=== PATIENT | female | born 1930 | race Caucasian/White ===

== ENCOUNTER → 2017-08-24 | Outpatient (CLI) | payer MEDICARE, OTHER ==
[~2017-08-24] MED LIST: ACETAMINOPHEN325 M1; ACETAMINOPHEN325 M1 PO; ALLOPURINOL 30300 M1 PO; ALLOPURINOL 30300 M3 PO; ALPRAZOLAM 0.0.25 M1 PO; AMOXICILLIN 50500 MG PO; ASPIRIN EC81 M1 PO; BENGAY GREASELE57 GM TOP; BENICAR20 MG; BENICAR20 MG PO; BENTYL; BENTYL 20 MG TA20 M1 PO; BENTYL20 MG; BENTYL20 MG PO; BUPROPION XL300 MG PO; CALCIUM PO; CARDIZEM CD120 MG; CEFUROXIME500 MG PO; CIPROFLOXACIN500 M3 PO; COUMADIN 1MG TAB1 M1 PO; COZAAR 50 MG TA50 M2 PO; DILTIAZEM ER120 M1 PO; FLAGYL500 MG PO; FUROSEMIDE 40 M40 MG PO; HYDROCODONE-AP1 EAC6 PO; IRON; IRON325 PO; JANTOVEN1 MG; KEFLEX500 MG PO; LASIX 40 MG TAB40 M2 PO; LIPITOR 20 MG T20 M1 PO; LIVALO4 MG PO; LOVASTAT40; MACROBID 100 M100 M1 PO; MACROBID 100 M100 M2 PO; MEDROL DOSPAK21 TA1 PO; MIRALAX17 GM PO; MOEXIPRIL-HCTZ1 EAC1; MOEXIPRIL-HCTZ1 EAC1 PO; NORCO 10-325 T1 EACH PO; POTASSIUM20; POTASSIUM20 PO; PREMARIN0.625 MG PO; PROTONIX40 M2 PO; RESTORIL7.5 MG PO; ROBAXIN 750 MG750 M1 PO; TRAMADOL; TRAMADOL 50 MG50 MG PO; ULTRAM 50MG TAB50 MG PO; VITAMINC500; VITAMINC500 PO; VOLTAREN GEL 1100 GM TOP; WELCHOL 625 MG625 MG PO; XANAX 0.25 MG0.25 MG; XANAX 0.25 MG0.25 MG PO
[2017-08-24 16:44] LABS: ABSOLUTE BASOPHILS 0.1 thou/uL (0.0-0.2); ABSOLUTE EOSINOPHILS 0.4 thou/uL (0.0-0.7); ABSOLUTE MONOCYTES 0.6 thou/uL (0.0-1.2); ABSOLUTE NEUTROPHILS 3.7 thou/uL (1.6-8.1); EOSINOPHILS 6.8 %; HEMATOCRIT 29.5 % (37.0-47.0); HEMOGLOBIN 9.8 gm/dL (12.0-15.0); LYMPHOCYTES 16.9 %; MCH 30.7 pg (26.0-34.0); MCHC 33.1 g/dL (28.0-37.0); MCV 92.5 fL (80.0-100.0); MONOCYTES 9.7 %; MPV 8.4 fl. (7.2-11.1); NUCLEATED RBCS 0 /100WBC; PLATELET COUNT* 166 thou/uL (150-400); POLYS 64.6 %; RBC 3.18 mil/uL (4.20-5.00); RDW-CV 15.1 % (10.5-14.5); WBC 5.8 thou/uL (4.0-11.0)
[2017-08-24 16:58] LABS: ALBUMIN 3.5 g/dL (3.4-5.0); CALCIUM 9.6 mg/dL (8.5-10.1); CREATININE 2.3 mg/dL (0.6-1.3); PHOSPHORUS* 3.1 mg/dL (2.5-4.9); POTASSIUM 3.6 mmol/L (3.5-5.1); TOTAL BILIRUBIN 0.4 mg/dL (<0.1-1.0); TOTAL PROTEIN 7.7 g/dL (6.4-8.2)
[2017-08-25 10:10] LABS: eGFR IF AFRICAN AMERICAN 24 (>59)
[2017-08-25 19:11] LABS: PARATHYROID HORMONE 158 pg/mL (15-65)
== END ==
LOC: M.LAB → EDSTATUS 08-06 15:47 → M.LAB 15:49
PROVIDERS: Internal Medicine
DX: I13.0 Hypertensive heart and chronic kidney disease with heart failure and stage 1 through stage 4 chronic kidney disease, or unspecified chronic kidney disease (principal); N18.4 Chronic kidney disease, stage 4 (severe); I50.22 Chronic systolic (congestive) heart failure; I25.10 Atherosclerotic heart disease of native coronary artery without angina pectoris; E78.5 Hyperlipidemia, unspecified; N39.0 Urinary tract infection, site not specified; E87.1 Hypo-osmolality and hyponatremia; Z90.710 Acquired absence of both cervix and uterus

== ENCOUNTER 2017-08-31 09:07 | Emergency (ER) | payer MEDICARE, OTHER ==
[~2017-08-31] VITALS: Ht 149.9 cm; Wt 54.4 kg
[~2017-08-31 09:07] MED LIST changes: -BENGAY GREASELE57 GM TOP; -CEFUROXIME500 MG PO; -FLAGYL500 MG PO; -LIPITOR 20 MG T20 M1 PO; -MEDROL DOSPAK21 TA1 PO; -MIRALAX17 GM PO; -RESTORIL7.5 MG PO; -XANAX 0.25 MG0.25 MG PO
[2017-08-31 09:31] LABS: ABSOLUTE BASOPHILS 0.1 thou/uL (0.0-0.2); ABSOLUTE EOSINOPHILS 0.4 thou/uL (0.0-0.7); ABSOLUTE MONOCYTES 0.5 thou/uL (0.0-1.2); ABSOLUTE NEUTROPHILS 3.7 thou/uL (1.6-8.1); EOSINOPHILS 7.8 %; HEMATOCRIT 26.5 % (37.0-47.0); HEMOGLOBIN 8.8 gm/dL (12.0-15.0); LYMPHOCYTES 17.2 %; MCH 30.7 pg (26.0-34.0); MCHC 33.2 g/dL (28.0-37.0); MCV 92.5 fL (80.0-100.0); MONOCYTES 8.5 %; MPV 7.6 fl. (7.2-11.1); NUCLEATED RBCS 0 /100WBC; PLATELET COUNT* 150 thou/uL (150-400); POLYS 64.5 %; RBC 2.86 mil/uL (4.20-5.00); RDW-CV 15.3 % (10.5-14.5); WBC 5.7 thou/uL (4.0-11.0)
[2017-08-31 09:39] LABS: CALCIUM 9.2 mg/dL (8.5-10.1); POTASSIUM 3.9 mmol/L (3.5-5.1)
[2017-08-31 09:44] LABS: ALBUMIN 3.1 g/dL (3.4-5.0); TOTAL BILIRUBIN 0.5 mg/dL (<0.1-1.0); TOTAL PROTEIN 6.8 g/dL (6.4-8.2)
[2017-08-31 09:45] LABS: PROTIME 25.9 Seconds (9.20-11.50)
[2017-08-31 09:46] LABS: INR 2.7
[2017-08-31 14:09] VITALS: BP 120/76
--- NOTE | 2017-08-31 14:54 | EKG ---
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 : 1930 Requested By: Trevon Davies Order Number: [id number] MD: Carlos Browne Measurements Intervals [place] Rate: 92 P: 50 VT: 171 QRS: -32 QRSD: 108 T: 46 QT: 397 QTc: 492 Interpretive Statements Sinus rhythm Left axis deviation Abnormal R-wave progression, early transition Borderline prolonged QT interval Baseline wander in lead(s) V1 Compared to ECG 01/18/2017 15:12:56 no change Electronically Signed On 08-31-2017 14:53:48 FRUIT DRYER by Carlos Browne [email or web address] <ELECTRONICALLY SIGNED> By: Carlos Browne MD, [facility] 08/31/17 1453 0914 0914 Carlos Browne MD, [facility] /EPI
== END 2017-08-31 14:11 | disposition home or self-care (01) ==
LOC: M.ERS 09:07
PROVIDERS: Emergency Medicine Emergency Medical Services
DX: M25.572 Pain in left ankle and joints of left foot (principal); R51 Headache; Z90.710 Acquired absence of both cervix and uterus; Z96.653 Presence of artificial knee joint, bilateral; Z88.2 Allergy status to sulfonamides; W01.0XXA Fall on same level from slipping, tripping and stumbling without subsequent striking against object, initial encounter; Y93.89 Activity, other specified; Y92.89 Other specified places as the place of occurrence of the external cause; Y99.8 Other external cause status

== ENCOUNTER → 2017-09-18 | Outpatient (CLI) | payer MEDICARE, OTHER ==
[~2017-09-18] MED LIST changes: +BENGAY GREASELE57 GM TOP; +CEFUROXIME500 MG PO; +FLAGYL500 MG PO; +LIPITOR 20 MG T20 M1 PO; +MEDROL DOSPAK21 TA1 PO; +MIRALAX17 GM PO; +RESTORIL7.5 MG PO; +XANAX 0.25 MG0.25 MG PO
[2017-09-18 13:09] LABS: ABSOLUTE BASOPHILS 0.2 thou/uL (0.0-0.2); ABSOLUTE EOSINOPHILS 0.3 thou/uL (0.0-0.7); ABSOLUTE LYMPHOCYTES 1.2 thou/uL (0.8-5.3); ABSOLUTE MONOCYTES 0.7 thou/uL (0.0-1.2); ABSOLUTE NEUTROPHILS 3.6 thou/uL (1.6-8.1); BASOPHILS 2.7 %; EOSINOPHILS 4.7 %; HEMATOCRIT 28.6 % (37.0-47.0); HEMOGLOBIN 9.5 gm/dL (12.0-15.0); MCH 30.5 pg (26.0-34.0); MCHC 33.1 g/dL (28.0-37.0); MCV 92.2 fL (80.0-100.0); MONOCYTES 11.1 %; MPV 7.7 fl. (7.2-11.1); NUCLEATED RBCS 0 /100WBC; PLATELET COUNT* 171 thou/uL (150-400); POLYS 61.5 %; RDW-CV 16.1 % (10.5-14.5); WBC 5.9 thou/uL (4.0-11.0)
[2017-09-18 13:22] LABS: ALBUMIN 3.3 g/dL (3.4-5.0); CALCIUM 8.8 mg/dL (8.5-10.1); CREATININE 1.6 mg/dL (0.6-1.3); PHOSPHORUS* 3.3 mg/dL (2.5-4.9); POTASSIUM 3.7 mmol/L (3.5-5.1); TOTAL BILIRUBIN 0.7 mg/dL (<0.1-1.0); TOTAL PROTEIN 7.2 g/dL (6.4-8.2)
[2017-09-18 17:51] LABS: % SATURATION 26 % (20-39); IRON 59 ug/dL (50-175)
[2017-09-18 19:13] LABS: eGFR IF AFRICAN AMERICAN 37 (>59)
[2017-09-18 21:07] LABS: IgA 302 mg/dL (64-422); IgG 1204 mg/dL (700-1600); IgM 56 mg/dL (26-217); PARATHYROID HORMONE 154 pg/mL (15-65)
[2017-09-19 17:10] LABS: KAPPA FREE LIGHT CHAINS 70.3 mg/L (3.3-19.4); LAMBDA FREE LIGHT CHAINS 39.8 mg/L (5.7-26.3)
== END ==
LOC: M.RAD 11:56
PROVIDERS: Internal Medicine
DX: I13.0 Hypertensive heart and chronic kidney disease with heart failure and stage 1 through stage 4 chronic kidney disease, or unspecified chronic kidney disease (principal); N18.3 Chronic kidney disease, stage 3 (moderate); M19.012 Primary osteoarthritis, left shoulder; M19.011 Primary osteoarthritis, right shoulder; I50.9 Heart failure, unspecified; E78.5 Hyperlipidemia, unspecified; I25.10 Atherosclerotic heart disease of native coronary artery without angina pectoris; Z79.01 Long term (current) use of anticoagulants; Z95.2 Presence of prosthetic heart valve; Z95.1 Presence of aortocoronary bypass graft

== ENCOUNTER → 2017-09-18 | Outpatient (CLI) | payer MEDICARE, OTHER ==
[2017-09-18 13:15] LABS: INR 3.6; PROTIME 34.7 Seconds (9.20-11.50)
== END ==
LOC: M.LAB 12:07 → EDSTATUS 17:34
DX: Z79.01 Long term (current) use of anticoagulants (principal); Z95.2 Presence of prosthetic heart valve; Z95.1 Presence of aortocoronary bypass graft; N18.4 Chronic kidney disease, stage 4 (severe)

== ENCOUNTER 2017-10-17 19:22 | Inpatient (IN) | payer MEDICARE, OTHER ==
[~2017-10-17] VITALS: Ht 152.4 cm; Wt 58.1 kg
[~2017-10-17 19:22] MED LIST changes: -BENGAY GREASELE57 GM TOP; -CEFUROXIME500 MG PO; -FLAGYL500 MG PO; -LIPITOR 20 MG T20 M1 PO; -MEDROL DOSPAK21 TA1 PO; -MIRALAX17 GM PO; -RESTORIL7.5 MG PO; -XANAX 0.25 MG0.25 MG PO
[2017-10-17 19:43] VITALS: BP 120/66
[2017-10-17 20:16] LABS: URINE BILIRUBIN NEGATIVE (Negative); URINE BLOOD NEGATIVE (Negative); URINE CLARITY CLEAR; URINE COLOR YELLOW; URINE GLUCOSE-RANDOM NEGATIVE (Negative); URINE KETONES NEGATIVE (Negative); URINE LEUKOCYTES-REFLEX NEGATIVE (Negative); URINE NITRITE-REFLEX NEGATIVE (Negative); URINE PROTEIN 1+ (Negative); URINE UROBILINOGEN 0.2 E.U./dl (0.2-1.0)
[2017-10-17 20:27] LABS: ABSOLUTE BASOPHILS 0.1 thou/uL (0.0-0.2); ABSOLUTE EOSINOPHILS 0.3 thou/uL (0.0-0.7); ABSOLUTE LYMPHOCYTES 1.5 thou/uL (0.8-5.3); ABSOLUTE NEUTROPHILS 5.3 thou/uL (1.6-8.1); BASOPHILS 1.5 %; EOSINOPHILS 3.8 %; HEMATOCRIT 27.1 % (37.0-47.0); HEMOGLOBIN 9.1 gm/dL (12.0-15.0); MCH 30.9 pg (26.0-34.0); MCHC 33.7 g/dL (28.0-37.0); MCV 91.7 fL (80.0-100.0); MONOCYTES 11.8 %; MPV 9.3 fl. (7.2-11.1); NUCLEATED RBCS 0 /100WBC; PLATELET COUNT* 169 thou/uL (150-400); POLYS 64.9 %; RBC 2.96 mil/uL (4.20-5.00); RDW-CV 15.1 % (10.5-14.5); WBC 8.1 thou/uL (4.0-11.0)
[2017-10-17 20:37] LABS: INR 2.2; PROTIME 21.4 Seconds (9.20-11.50)
[2017-10-17 20:40] LABS: ANION GAP 11 mmol/L (7-16); BUN 33 mg/dL (7-18); CALCIUM 8.9 mg/dL (8.5-10.1); CHLORIDE 106 mmol/L (98-107); CO2 26 mmol/L (21-32); CREATININE 1.8 mg/dL (0.6-1.3); GLUCOSE 106 mg/dL (70-99); POTASSIUM 3.6 mmol/L (3.5-5.1); SODIUM 143 mmol/L (136-145)
[2017-10-17 20:47] LABS: ALBUMIN 3.4 g/dL (3.4-5.0); ALKALINE PHOSPHATASE 154 U/L (46-116); LIPASE 183 U/L (73-393); SGOT 19 U/L (15-37); SGPT 13 U/L (30-65); TOTAL BILIRUBIN 0.5 mg/dL (<0.1-1.0); TOTAL PROTEIN 7.6 g/dL (6.4-8.2); TROPONIN-I LEVEL <0.06 ng/mL (<0.06)
[2017-10-17 22:35] VITALS: BP 110/61
[2017-10-17 23:59] VITALS: BP 151/62
[2017-10-18 05:07] LABS: ABSOLUTE BASOPHILS 0.1 thou/uL (0.0-0.2); ABSOLUTE EOSINOPHILS 0.1 thou/uL (0.0-0.7); ABSOLUTE LYMPHOCYTES 0.9 thou/uL (0.8-5.3); ABSOLUTE MONOCYTES 0.9 thou/uL (0.0-1.2); ABSOLUTE NEUTROPHILS 4.5 thou/uL (1.6-8.1); BASOPHILS 0.8 %; EOSINOPHILS 2.1 %; HEMATOCRIT 23.8 % (37.0-47.0); HEMOGLOBIN 7.9 gm/dL (12.0-15.0); LYMPHOCYTES 13.6 %; MCH 30.2 pg (26.0-34.0); MCV 91.5 fL (80.0-100.0); MONOCYTES 13.3 %; MPV 8.7 fl. (7.2-11.1); NUCLEATED RBCS 0 /100WBC; PLATELET COUNT* 118 thou/uL (150-400); POLYS 70.2 %; RDW-CV 15.1 % (10.5-14.5); WBC 6.4 thou/uL (4.0-11.0)
--- NOTE | 2017-10-18 06:26 | NUR ---
ASSESSMENT COMPLETE. PT ADMITTED WITH ABDOMINAL PAIN. FENTANYL DID NOT HELP, DR CHANGED TO MORPHINE AND PT REPORTED RELIEF. PT REPORTS PAIN IS INTERMITTENT AND SHARP SHOOTING DOWN RIGHT LEG. PT HAS BEEN NPO. IV FLUIDS INFUSING. PT FORGETFUL AND CONFUSED DURING THE NIGHT. PT HAS ROUTINE SURGERY CONSULT. PT IS SLEEPING AT THIS TIME. SEE ASSESSMENT AND VITALS FOR OTHER DETAILS. PT IS FALL RISK, BED ALARM ON. CALL LIGHT WITHIN REACH, WILL CONTINUE PLAN OF CARE
[2017-10-18 07:55] VITALS: BP 112/59
--- NOTE | 2017-10-18 15:17 | EKG ---
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: BD : 1930 Requested By: Preston Coon Order Number: [id number] MD: Jordy Desouza Measurements Intervals [place] Rate: 95 P: 98 [place]: 199 QRS: -24 QRSD: 115 T: 70 QT: 381 QTc: 479 Interpretive Statements Sinus rhythm Incomplete right bundle branch block Baseline wander in lead(s) III,aVL,V2,V3,V5,V6 Compared to ECG 08/31/2017 09:14:29 Incomplete right bundle-branch block now present ST (T wave) deviation now present Left-axis deviation no longer present Electronically Signed On 10-18-2017 15:17:18 CDT by Jordy Desouza [email or web address] <ELECTRONICALLY SIGNED> By: Jordy Desouza MD, FACC 10/18/17 1517 07 07 Jordy Desouza MD, FAC /EPI
--- NOTE | 2017-10-18 18:10 | NUR ---
PATIENT HAS BEEN ALERT AND ORIENTED TODAY, VERY PLEASANT. FAMILY IN ROOM. VITAL SIGNS STABLE ON ROOM AIR, SOME PAIN THAT IS CONTROLLED WITH ORAL PAIN MEDICATIONS. CALL LIGHT IS IN REACH, WILL CONTINUE TO MONITOR.
[2017-10-18 19:31] VITALS: BP 128/53
[2017-10-19 04:39] LABS: HEMATOCRIT 23.8 % (37.0-47.0); HEMOGLOBIN 7.9 gm/dL (12.0-15.0); MCH 30.6 pg (26.0-34.0); MCV 92.8 fL (80.0-100.0); MPV 8.8 fl. (7.2-11.1); RBC 2.57 mil/uL (4.20-5.00); RDW-CV 15.4 % (10.5-14.5); WBC 5.3 thou/uL (4.0-11.0)
[2017-10-19 05:23] LABS: ALBUMIN 2.6 g/dL (3.4-5.0); CALCIUM 8.3 mg/dL (8.5-10.1); CREATININE 1.9 mg/dL (0.6-1.3); MAGNESIUM 1.6 mg/dL (1.8-2.4); POTASSIUM 4.2 mmol/L (3.5-5.1); TOTAL BILIRUBIN 0.4 mg/dL (<0.1-1.0); TOTAL PROTEIN 5.7 g/dL (6.4-8.2)
--- NOTE | 2017-10-19 06:17 | NUR ---
ASSESSMENT COMPLETE. PT SLEPT MOST OF THE NIGHT, DAUGHTER AT BEDSIDE. PT CONFUSED AND FORGETFUL DURING THE NIGHT AND DAUGHTER REPORTS THIS IS NOT BASELINE. PT DENIES NEED FOR PAIN MEDICATION THROUGHOUT THE SHIFT. PT IS ON ROOM AIR WITH [place] SATS. PT HAS IV FLUIDS INFUSING. PT IS FALL RISK, BED ALARM ON. PT IS UP WITH ONE ASSIST TO BSC. PT TURNS SELF IN BED. IV ANTIBIOTICS GIVEN ORDERED. PT HAS NO CONCERNS AT THIS TIME. SEE ASSESSMENT AND VITALS FOR OTHER DETAILS. CALL LIGHT WITHIN REACH, WILL CONTINUE PLAN OF CARE
[2017-10-19 07:50] VITALS: BP 113/75
--- NOTE | 2017-10-19 11:52 | NUR ---
INITIAL ASSESSMENT: Pt evaluated for d/c planning needs. Reviewed chart and spoke with nurse, physician, pt and daughter. Pt is alert and oriented. Pt lives alone in house and was independent with ADL's prior to admission. Daughters are supportive and involved. Pt has walker and cane at home. Pt has had [facility] the past. Pt plans on returning home on d/c from hospital, and wants to use [facility]. Called [facility] and faxed referral. No other needs identified.
[2017-10-19] MEDS ORDERED: MEDROL DOSPAK21 TA1 PO (12:00)
[2017-10-19] MEDS ORDERED: FLAGYL500 MG PO (12:01)
[2017-10-19 12:10] VITALS: BP 128/53
--- NOTE | 2017-10-19 13:55 | NUR ---
PATIENT DISCHARGED TO HOME WITH HOME HEALTH. DISCHARGE PAPERS REVIEWED AND SIGNED. PRESCRIPTIONS AND INFORMATION SHEETS GIVEN. IV REMOVED. PATIENT DENIES ANY FURTHER NEEDS. PATIENT TAKEN BY WHEELCHAIR TO EXIT. LEFT WITH DAUGHTER.
== END 2017-10-19 13:55 | disposition home health service (06) | DRG 391 ==
LOC: M.ERS 19:22 → M.TBA-ER 21:43 → M.3W 21:43
PROVIDERS: Emergency Medicine; Internal Medicine; ADMIT Internal Medicine
DX: K57.32 Diverticulitis of large intestine without perforation or abscess without bleeding (principal); E43 Unspecified severe protein-calorie malnutrition; N20.1 Calculus of ureter; N18.4 Chronic kidney disease, stage 4 (severe); I12.9 Hypertensive chronic kidney disease with stage 1 through stage 4 chronic kidney disease, or unspecified chronic kidney disease; I25.10 Atherosclerotic heart disease of native coronary artery without angina pectoris; E78.5 Hyperlipidemia, unspecified; M19.011 Primary osteoarthritis, right shoulder; D64.9 Anemia, unspecified; Z96.653 Presence of artificial knee joint, bilateral; Z90.49 Acquired absence of other specified parts of digestive tract; Z90.710 Acquired absence of both cervix and uterus; Z95.1 Presence of aortocoronary bypass graft; Z95.2 Presence of prosthetic heart valve; Z90.722 Acquired absence of ovaries, bilateral; Z79.01 Long term (current) use of anticoagulants; Z79.82 Long term (current) use of aspirin; Z79.899 Other long term (current) drug therapy; Z88.2 Allergy status to sulfonamides; Z82.49 Family history of ischemic heart disease and other diseases of the circulatory system

== ENCOUNTER → 2018-01-25 | Outpatient (CLI) | payer MEDICARE, OTHER ==
[~2018-01-25] MED LIST changes: +BENGAY GREASELE57 GM TOP; +CEFUROXIME500 MG PO; +FLAGYL500 MG PO; +LIPITOR 20 MG T20 M1 PO; +MEDROL DOSPAK21 TA1 PO; +MIRALAX17 GM PO; +RESTORIL7.5 MG PO; +XANAX 0.25 MG0.25 MG PO
[2018-01-25 16:24] LABS: ABSOLUTE BASOPHILS 0.1 thou/uL (0.0-0.2); ABSOLUTE EOSINOPHILS 0.4 thou/uL (0.0-0.7); ABSOLUTE LYMPHOCYTES 1.4 thou/uL (0.8-5.3); ABSOLUTE MONOCYTES 0.6 thou/uL (0.0-1.2); ABSOLUTE NEUTROPHILS 3.6 thou/uL (1.6-8.1); BASOPHILS 1.4 %; EOSINOPHILS 6.1 %; HEMATOCRIT 31.6 % (37.0-47.0); HEMOGLOBIN 10.3 gm/dL (12.0-15.0); MCH 29.5 pg (26.0-34.0); MCHC 32.6 g/dL (28.0-37.0); MCV 90.5 fL (80.0-100.0); MONOCYTES 9.6 %; MPV 7.6 fl. (7.2-11.1); NUCLEATED RBCS 0 /100WBC; PLATELET COUNT* 168 thou/uL (150-400); POLYS 59.9 %; RBC 3.49 mil/uL (4.20-5.00); RDW-CV 16.4 % (10.5-14.5)
[2018-01-25 16:40] LABS: CALCIUM 9.9 mg/dL (8.5-10.1); CREATININE 1.8 mg/dL (0.6-1.3); MAGNESIUM 2.4 mg/dL (1.8-2.4); POTASSIUM 4.5 mmol/L (3.5-5.1)
[2018-01-25 16:42] LABS: URINE BILIRUBIN NEGATIVE (Negative); URINE BLOOD NEGATIVE (Negative); URINE CLARITY CLEAR; URINE COLOR YELLOW; URINE GLUCOSE-RANDOM NEGATIVE (Negative); URINE KETONES NEGATIVE (Negative); URINE LEUKOCYTES TRACE (Negative); URINE NITRITE NEGATIVE (Negative); URINE PROTEIN TRACE (Negative); URINE UROBILINOGEN 0.2 E.U./dl (0.2-1.0)
[2018-01-25 16:56] LABS: SQUAMOUS 4-10 Moderate /LPF (0-3)
[2018-01-25 16:58] LABS: BACTERIA None Seen /HPF (None Seen); CASTS None Seen /LPF (None Seen); CRYSTALS None Seen /LPF (None Seen); URINE RBC None Seen /HPF (0-2); URINE WBC 0-5 Rare /HPF (0-5)
[2018-01-26 02:07] LABS: eGFR IF AFRICAN AMERICAN 30 (>59)
== END ==
LOC: M.LAB 15:54
PROVIDERS: Internal Medicine
DX: N18.4 Chronic kidney disease, stage 4 (severe) (principal)

== ENCOUNTER 2018-03-13 06:01 | Inpatient (IN) | payer MEDICARE, OTHER ==
[~2018-03-13] VITALS: Ht 152.4 cm; Wt 54.0 kg
[~2018-03-13 06:01] MED LIST changes: -BENGAY GREASELE57 GM TOP; -CEFUROXIME500 MG PO; -LIPITOR 20 MG T20 M1 PO; -MIRALAX17 GM PO; -RESTORIL7.5 MG PO; -XANAX 0.25 MG0.25 MG PO
[2018-03-13 06:10] VITALS: BP 143/62
[2018-03-13 06:43] LABS: ABSOLUTE BASOPHILS 0.1 thou/uL (0.0-0.2); ABSOLUTE EOSINOPHILS 0.3 thou/uL (0.0-0.7); ABSOLUTE LYMPHOCYTES 1.3 thou/uL (0.8-5.3); ABSOLUTE MONOCYTES 0.5 thou/uL (0.0-1.2); BASOPHILS 1.4 %; EOSINOPHILS 5.9 %; HEMATOCRIT 25.6 % (37.0-47.0); HEMOGLOBIN 8.3 gm/dL (12.0-15.0); LYMPHOCYTES 25.1 %; MCH 30.2 pg (26.0-34.0); MCHC 32.5 g/dL (28.0-37.0); NUCLEATED RBCS 0 /100WBC; PLATELET COUNT* 126 thou/uL (150-400); POLYS 57.6 %; RBC 2.76 mil/uL (4.20-5.00); RDW-CV 16.8 % (10.5-14.5); WBC 5.2 thou/uL (4.0-11.0)
[2018-03-13 06:48] LABS: ANION GAP 7 mmol/L (7-16); BUN 58 mg/dL (7-18); CALCIUM 9.4 mg/dL (8.5-10.1); CHLORIDE 108 mmol/L (98-107); CO2 24 mmol/L (21-32); CREATININE 2.4 mg/dL (0.6-1.3); GLUCOSE 87 mg/dL (70-99); POTASSIUM 4.4 mmol/L (3.5-5.1); SODIUM 139 mmol/L (136-145)
[2018-03-13 06:53] LABS: INR 5.4
[2018-03-13 06:59] LABS: ALBUMIN 3.3 g/dL (3.4-5.0); ALKALINE PHOSPHATASE 113 U/L (46-116); NT-PRO BRAIN NAT PEPTIDE 3151 pg/mL (<300); SGOT 30 U/L (15-37); SGPT 22 U/L (30-65); TOTAL BILIRUBIN 0.5 mg/dL (<0.1-1.0); TOTAL PROTEIN 6.9 g/dL (6.4-8.2); TROPONIN-I LEVEL <0.06 ng/mL (<0.06)
[2018-03-13 07:52] LABS: URINE BILIRUBIN NEGATIVE (Negative); URINE BLOOD 1+ (Negative); URINE CLARITY SL CLOUDY; URINE COLOR YELLOW; URINE GLUCOSE-RANDOM NEGATIVE (Negative); URINE KETONES NEGATIVE (Negative); URINE PROTEIN 1+ (Negative); URINE SPECIFIC GRAVITY 1.015 (1.005-1.030); URINE UROBILINOGEN 0.2 E.U./dl (0.2-1.0)
[2018-03-13 07:54] LABS: URINE LEUKOCYTES-REFLEX 2+ (Negative); URINE NITRITE-REFLEX POSITIVE (Negative)
[2018-03-13 07:59] LABS: BACTERIA-REFLEX 1-9 Few /HPF (None Seen); CASTS None Seen /LPF (None Seen); CRYSTALS None Seen /LPF (None Seen); MUCUS 0-3 Light strn/LPF (None Seen); SQUAMOUS 0-3 Few /LPF (0-3); URINE RBC 3-10 Few /HPF (0-2)
[2018-03-13 12:00] VITALS: BP 147/50
[2018-03-13 16:32] VITALS: BP 120/45
--- NOTE | 2018-03-13 17:36 | EKG ---
[place] [address] ELECTROCARDIOGRAM REPORT Name: EMMA MARTINEZ Room: [place] [address] ADM IN M.R.#: [id number] Admission: 03/13/18 Attend Phys: Milagros Cooney MD Discharge: Date of : [birth year] Report #: [id number] THIS REPORT FOR: //name// [facility] ED Test Date: 2018-03-13 Test Time: 08:24:10 Pat Name: EMMA MARTINEZ Department: Room: [facility] Gender: F Mandarin Tutor: Steven YEH : 1930 Requested By: Demarco Young Order Number: [id number] MD: Jordy Desouza Measurements Intervals [place] Rate: 77 P: 60 [place]: 168 QRS: -35 QRSD: 112 T: 31 QT: 403 QTc: 457 Interpretive Statements Sinus rhythm Borderline IVCD with LAD Abnormal R-wave progression, early transition Compared to ECG 10/17/2017 20:08:53 Incomplete right bundle-branch block no longer present Electronically Signed On 03-13-2018 17:36:03 CDT by Jordy Desouza [email or web address] <ELECTRONICALLY SIGNED> By: Jordy Desouza MD, [facility] 03/13/18 1736 3 3 Jordy Desouza MD, [facility] /EPI
[2018-03-13 18:00] VITALS: BP 114/48
[2018-03-13 18:10] VITALS: BP 150/62
[2018-03-13 23:43] VITALS: BP 169/80
[2018-03-14 04:34] LABS: ABSOLUTE BASOPHILS 0.1 thou/uL (0.0-0.2); ABSOLUTE EOSINOPHILS 0.4 thou/uL (0.0-0.7); ABSOLUTE LYMPHOCYTES 1.7 thou/uL (0.8-5.3); ABSOLUTE MONOCYTES 0.6 thou/uL (0.0-1.2); ABSOLUTE NEUTROPHILS 2.9 thou/uL (1.6-8.1); BASOPHILS 1.2 %; EOSINOPHILS 6.6 %; HEMATOCRIT 26.3 % (37.0-47.0); HEMOGLOBIN 8.5 gm/dL (12.0-15.0); LYMPHOCYTES 29.8 %; MCH 29.9 pg (26.0-34.0); MCHC 32.2 g/dL (28.0-37.0); MCV 92.9 fL (80.0-100.0); MONOCYTES 10.4 %; MPV 8.3 fl. (7.2-11.1); NUCLEATED RBCS 0 /100WBC; PLATELET COUNT* 124 thou/uL (150-400); RBC 2.83 mil/uL (4.20-5.00); RDW-CV 16.6 % (10.5-14.5); WBC 5.6 thou/uL (4.0-11.0)
[2018-03-14 04:36] LABS: PROTIME 46.7 Seconds (9.20-11.50)
[2018-03-14 04:43] LABS: INR 4.9
[2018-03-14 04:44] LABS: CREATININE 2.3 mg/dL (0.6-1.3)
[2018-03-14 08:15] VITALS: BP 128/43
[2018-03-14 16:36] VITALS: BP 127/43
[2018-03-14 19:50] VITALS: BP 136/81
[2018-03-14 23:30] VITALS: BP 130/49
[2018-03-15 04:00] VITALS: BP 94/57
[2018-03-15 04:36] LABS: ABSOLUTE BASOPHILS 0.1 thou/uL (0.0-0.2); ABSOLUTE EOSINOPHILS 0.3 thou/uL (0.0-0.7); ABSOLUTE LYMPHOCYTES 1.5 thou/uL (0.8-5.3); ABSOLUTE MONOCYTES 0.5 thou/uL (0.0-1.2); BASOPHILS 1.1 %; EOSINOPHILS 4.8 %; HEMATOCRIT 28.1 % (37.0-47.0); HEMOGLOBIN 9.2 gm/dL (12.0-15.0); LYMPHOCYTES 23.1 %; MCH 30.4 pg (26.0-34.0); MCHC 32.8 g/dL (28.0-37.0); MCV 92.7 fL (80.0-100.0); MONOCYTES 8.5 %; MPV 8.7 fl. (7.2-11.1); NUCLEATED RBCS 0 /100WBC; PLATELET COUNT* 136 thou/uL (150-400); POLYS 62.5 %; RBC 3.03 mil/uL (4.20-5.00); RDW-CV 16.4 % (10.5-14.5); WBC 6.3 thou/uL (4.0-11.0)
[2018-03-15 04:43] LABS: PROTIME 28.8 Seconds (9.20-11.50)
[2018-03-15 04:57] LABS: ALBUMIN 3.3 g/dL (3.4-5.0); CALCIUM 8.8 mg/dL (8.5-10.1); CREATININE 2.4 mg/dL (0.6-1.3); PHOSPHORUS* 3.9 mg/dL (2.5-4.9); POTASSIUM 4.5 mmol/L (3.5-5.1); TOTAL BILIRUBIN 0.5 mg/dL (<0.1-1.0); TOTAL PROTEIN 6.2 g/dL (6.4-8.2)
[2018-03-15 08:00] VITALS: BP 101/46
[2018-03-15 16:35] VITALS: BP 138/54
[2018-03-16] VITALS: BP 158/95
[2018-03-16 04:00] VITALS: BP 105/42
[2018-03-16 04:49] LABS: INR 2.3; PROTIME 21.8 Seconds (9.20-11.50)
[2018-03-16 07:35] VITALS: BP 105/42
[2018-03-16 07:55] VITALS: BP 145/52
[2018-03-16 12:00] VITALS: BP 117/41
[2018-03-16 16:00] VITALS: BP 102/71
[2018-03-17] VITALS: BP 116/57
[2018-03-17 04:00] VITALS: BP 155/66
[2018-03-17 04:55] LABS: INR 2.2; PROTIME 21.5 Seconds (9.20-11.50)
[2018-03-17 05:10] LABS: ALBUMIN 2.9 g/dL (3.4-5.0); CREATININE 2.2 mg/dL (0.6-1.3); PHOSPHORUS* 4.1 mg/dL (2.5-4.9); POTASSIUM 4.6 mmol/L (3.5-5.1)
[2018-03-17 05:50] LABS: CALCIUM 9.1 mg/dL (8.5-10.1)
[2018-03-17 07:35] VITALS: BP 112/35
--- NOTE | 2018-03-17 11:11 | CON ---
[address] [address] CONSULTATION Name: EMMA MARTINEZ Room: [address] IN M.R.#: [id number] Admission: 03/13/18 Attend Phys: Milagros Cooney MD Discharge: Date of : [birth year] Report #: [id number] THIS REPORT FOR: //name// CC: Milagros Cooley DATE OF SERVICE: 03/14/2018 Nephrology Consultation CONSULTING PHYSICIAN: Dr. Cooney. REASON FOR CONSULTATION: Acute kidney injury. HISTORY OF PRESENT ILLNESS: An 87-year-old female with a history of chronic kidney disease. She was admitted with urinary tract infection and leg pain. She is being followed by vascular and has been started on antibiotics. She follows with Dr. Osorio as an outpatient. She currently has no complaints. REVIEW OF SYSTEMS: Constitutional, psych, heme, eyes, ENT, respiratory, cardiac, GI, , and endocrine, all negative except as documented above. PAST MEDICAL HISTORY: 1. Chronic kidney disease stage 4 secondary to hypertension. 2. Hypertension. 3. Proteinuria. 4. Secondary hyperparathyroidism. 5. History of CHF. 6. Chronically anticoagulated. MEDICATIONS: Reviewed. FAMILY HISTORY: Not pertinent in this 87-year-old female. SOCIAL HISTORY: No current tobacco. PHYSICAL EXAMINATION: VITAL SIGNS: Blood pressure 127/43, pulse 65, respirations 17, and temperature 36.3. GENERAL: No acute distress. EYES: Extraocular movements intact. EARS: Externally normal. CARDIOVASCULAR: Regular rate. LUNGS: No crackles. ABDOMEN: Soft. MUSCULOSKELETAL: [place] [address] CONSULTATION Name: EMMA MARTINEZ Room: [address] IN .R.#: [id number] Admission: 03/13/18 Attend Phys: Milagros Cooney MD Discharge: Date of : [birth year] Report #: [id number] PSYCHIATRIC: Awake, alert. LABORATORY DATA: White cell count 5.6, hemoglobin 8.5, platelets 124. Sodium 140, potassium 5, chloride 109, bicarbonate 27, BUN 50, creatinine 2.3, glucose 87, calcium 9. ASSESSMENT: 1. Acute kidney injury with admission creatinine of 2.3. Outpatient creatinine was 1.8 on 01/25. 2. Chronic kidney disease stage 4 secondary to hypertension, followed by Dr. Osorio as an outpatient. Baseline creatinine appears to be 1.82. 3. Anemia of chronic disease, on Aranesp as an outpatient, also has iron deficiency with iron saturation of 14. 4. Coagulopathy. INR is 4.9. 5. Proteinuria. Urine protein creatinine ratio was 0.43 in August. 6. Hypertension. 7. Secondary Hyperparathyroidism. 8. Urinary tract infection. PLAN: 1. Currently on antibiotics. We will hold losartan and Lasix. 2. She does not have any evidence of significant volume depletion and has not recently had any vomiting or diarrhea. Encouraged her to maintain hydration orally. 3. Check renal ultrasound. 4. We will not give any intravenous iron secondary to infection. We will start iron sulfate 325 mg twice a day. 5. Check bladder scan. 6. Monitor Is and Os. 7. Check labs again in the a.m. 8. We will give a dose of Aranesp and/or Procrit here depending on availability. Thank you for requesting my opinion in the care and management of this patient. <ELECTRONICALLY SIGNED> By: Samia Knott MD 03/17/18 1111 1644 [id number] Knott MD /nt
[2018-03-17 16:50] VITALS: BP 126/42
[2018-03-17 20:05] VITALS: BP 142/61
[2018-03-18 00:28] VITALS: BP 194/82
[2018-03-18 01:11] VITALS: BP 155/78
[2018-03-18 04:00] VITALS: BP 150/62
[2018-03-18 04:45] LABS: INR 3.3; PROTIME 31.3 Seconds (9.20-11.50)
[2018-03-18 07:50] VITALS: BP 158/72
[2018-03-18 16:00] VITALS: BP 150/58
[2018-03-18 20:00] VITALS: BP 129/48
[2018-03-19 04:21] LABS: INR 3.9; PROTIME 37.5 Seconds (9.20-11.50)
[2018-03-19 04:28] VITALS: BP 153/75
[2018-03-19 16:00] VITALS: BP 121/71
[2018-03-19] MEDS ORDERED: RESTORIL7.5 MG PO (19:30)
[2018-03-19] MEDS ORDERED: BENGAY GREASELE57 GM TOP (19:36)
[2018-03-19] MEDS ORDERED: IRON325 PO (19:41)
[2018-03-19] MEDS ORDERED: MIRALAX17 GM PO (19:44)
[2018-03-19] MEDS ORDERED: CEFUROXIME500 MG PO (19:45)
[2018-03-19 19:46] VITALS: BP 105/42
[2018-03-19] MEDS ORDERED: XANAX 0.25 MG0.25 MG PO (20:05)
--- NOTE | 2018-04-12 09:12 | CON ---
[address] [address] CONSULTATION Name: EMMA MARTINEZ Room: [address] IN M.R.#: [id number] Admission: 03/13/18 Attend Phys: Milagros Cooney MD Discharge: 03/19/18 Date of : [birth year] Report #: [id number] THIS REPORT FOR: //name// CC: Zulma Cooley DATE OF SERVICE: 03/19/2018 REQUESTING PHYSICIAN: Bruce Cooley DO. CHIEF COMPLAINT: Preop evaluation. HISTORY OF PRESENT ILLNESS: The patient is an 87-year-old female who has a history of peripheral vascular disease and prior CABG, AVR, was diagnosed in the hospital with a severe carotid stenosis and I am asked to see her in preoperative evaluation. From a cardiovascular standpoint, she has not required any recent revascularization. She has a history of prior 3-vessel CABG and preserved LV function. She denies chest pain or pressure. She is without shortness of breath, congestive heart failure exacerbations. She denies palpitations. She is anticoagulated with warfarin. Currently, she has some confusion, but no focal neurologic symptoms and has not been diagnosed with a stroke this hospitalization to my understanding. PAST MEDICAL HISTORY: Carotid Dopplers this hospitalization showed a 60-70% right-sided carotid stenosis in the internal carotid artery. The left side is more severe with a 70% stenosis in the left internal carotid artery at the bulb with progression from her previous study. She also has lower extremity peripheral vascular disease. She has poor flow in the proximal left posterior tibial and no flow in the distal left posterior tibial. She has a history of 3-vessel CABG in 2010 with a mechanical aortic valve replacement. She is on warfarin anticoagulation. She has mitral valve stenosis in the moderate range. Her last stress test was in 2014 showed negative for ischemia. EF was normal and as above, she has not had any recent cardiovascular revascularizations. HOME MEDICATIONS: Include Tylenol, vitamin C, baby aspirin 81 mg every other day, warfarin as directed by the office, Lasix 40 mg daily, [place] p.r.n., losartan 50 mg daily, Protonix daily, Livalo 4 mg daily and Cardizem 30 mg p.o. b.i.d. SOCIAL HISTORY: She is a nonsmoker, nondrinker. ALLERGIES: [place] [address] CONSULTATION Name: JUANEMMA Elvin Room: [address]#: [id number] Admission: 03/13/18 Attend Phys: Milagros Cooney MD Discharge: 03/19/18 Date of : [birth year] Report #: [id number] REVIEW OF SYSTEMS: GENERAL: No fevers or chills. PULMONARY: No wheezing or cough. CARDIOVASCULAR: No chest pain. No significant shortness of breath. MUSCULOSKELETAL: No edema. HEMATOLOGIC: No anemia or bleeding disorders. RENAL: She does have moderate chronic kidney disease. Her creatinine is 2.2. GENITOURINARY: Positive urinary tract infection this hospitalization. PHYSICAL EXAMINATION: VITAL SIGNS: Blood pressure is 153/75, pulse is 83. GENERAL: This is a pleasant elderly female. 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 HEENT: There is no facial asymmetry. EYES: EOMs intact. No facial asymmetry. NECK: Supple. I cannot hear bruits. CARDIOVASCULAR: Regular with mechanical heart sounds. There is no rub. LUNGS: Clear to auscultation. ABDOMEN: Soft, nontender. EXTREMITIES: There is no focal abnormality. There is no peripheral edema. Radial pulses are intact. Dorsalis pedis pulses are reduced, left worse than right. DIAGNOSTIC: Electrocardiogram shows a sinus rhythm with LVH. LABORATORY DATA: Hemoglobin is 9.2. INR is 3.9. Sodium is 136, potassium 4.6, chloride 103, CO2 is 29, BUN is 51, creatinine is 2.2. IMPRESSION: 1. Preoperative evaluation. From a cardiovascular standpoint, I estimate her cardiovascular risk to be only moderate for myocardial infarction and congestive heart failure. She would need heparin bridging. Given her kidney disease, I would not use Lovenox for bridging. I do not see any contraindication to surgery. Obviously, her risk is predominantly a cerebrovascular at this point for destiny-procedural stroke. 2. Coronary artery disease. I do not see the need for stress testing as it would necessarily alter our predictions and she has been angina free. 3. Status post aortic valve replacement. She has normal mechanical valvular function based on last echo testing, but she has residual mitral valve disease. 4. Hypertension. I would keep her blood pressure higher range of normal in the [address] [address] CONSULTATION Name: EMMA MARTINEZ Room: [address]#: [id number] Admission: 03/13/18 Attend Phys: Milagros Cooney MD Discharge: 03/19/18 Date of : [birth year] Report #: [id number] 140-160 systolic range given her carotid vascular disease. 5. Chronic kidney disease. Her creatinine is likely near her baseline. <ELECTRONICALLY SIGNED> By: Mo Chong MD, FACC 04/12/18 0912 1012 [id number] Chong MD, FACC /nt
== END 2018-03-19 20:24 | DRG 682 ==
LOC: M.ERS 06:01 → M.3W 08:09 → M.TBA-ER 08:09 → M.3W 18:02
PROVIDERS: Emergency Medicine; Internal Medicine; Internal Medicine Nephrology; ADMIT Internal Medicine
DX: N17.9 Acute kidney failure, unspecified (principal); G93.40 Encephalopathy, unspecified; N39.0 Urinary tract infection, site not specified; I50.32 Chronic diastolic (congestive) heart failure; I13.0 Hypertensive heart and chronic kidney disease with heart failure and stage 1 through stage 4 chronic kidney disease, or unspecified chronic kidney disease; D68.9 Coagulation defect, unspecified; D63.8 Anemia in other chronic diseases classified elsewhere; B96.20 Unspecified Escherichia coli [E. coli] as the cause of diseases classified elsewhere; I65.23 Occlusion and stenosis of bilateral carotid arteries; N18.4 Chronic kidney disease, stage 4 (severe); M19.90 Unspecified osteoarthritis, unspecified site; M10.9 Gout, unspecified; I73.9 Peripheral vascular disease, unspecified; N25.81 Secondary hyperparathyroidism of renal origin; Z96.653 Presence of artificial knee joint, bilateral; Z90.49 Acquired absence of other specified parts of digestive tract; Z90.710 Acquired absence of both cervix and uterus; Z95.1 Presence of aortocoronary bypass graft; Z90.722 Acquired absence of ovaries, bilateral; Z79.01 Long term (current) use of anticoagulants; Z79.82 Long term (current) use of aspirin; Z79.899 Other long term (current) drug therapy; Z88.2 Allergy status to sulfonamides; Z82.49 Family history of ischemic heart disease and other diseases of the circulatory system

== ENCOUNTER 2018-03-19 17:07 | Inpatient (IN) | payer MEDICARE, OTHER ==
[~2018-03-19] VITALS: Ht 149.9 cm; Wt 53.5 kg
[2018-03-19] MEDS ORDERED: RESTORIL7.5 MG PO (19:30)
[2018-03-19] MEDS ORDERED: BENGAY GREASELE57 GM TOP (19:36)
[2018-03-19] MEDS ORDERED: IRON325 PO (19:41)
[2018-03-19] MEDS ORDERED: MIRALAX17 GM PO (19:44)
[2018-03-19] MEDS ORDERED: CEFUROXIME500 MG PO (19:45)
[2018-03-19] MEDS ORDERED: XANAX 0.25 MG0.25 MG PO (20:05)
[2018-03-19 20:30] VITALS: BP 102/49
[2018-03-20 04:28] LABS: CREATININE 1.9 mg/dL (0.6-1.3); INR 3.6; POTASSIUM 4.7 mmol/L (3.5-5.1); PROTIME 34.8 Seconds (9.20-11.50)
[2018-03-20 04:29] LABS: HEMATOCRIT 27.6 % (37.0-47.0); MCH 30.5 pg (26.0-34.0); MCHC 32.5 g/dL (28.0-37.0); MCV 93.9 fL (80.0-100.0); MPV 8.1 fl. (7.2-11.1); RBC 2.94 mil/uL (4.20-5.00); RDW-CV 17.3 % (10.5-14.5); WBC 7.6 thou/uL (4.0-11.0)
--- NOTE | 2018-03-20 05:11 | NUR ---
PT ARRIVED ONTO UNIT VIA BED AT 1999 WITH DAUGHTER. ALERT AND ORIENTED X 3. CALM COOPERATIVE BUT FORGETFUL. TAKES PILLS WHOLE WITHOUT ISSUES. C/O RIGHT ARM AND LEG PAIN. PAIN MEDS GIVEN. RESTORIL GIVEN AT HS PER DAUGHTER REQUEST. SHE IS A MIN ASSIST WITH GAIT BELT AND WALKER. UP TO BSC X 1 DURING THE NIGHT. PT DOES OWN CARES. PT SLEPT WELL. NO ATTEMPTS TO GET OUT OF BED. CALL LIGHT IN REACH AND BED ALARM ON.
[2018-03-20 08:30] VITALS: BP 135/78
--- NOTE | 2018-03-20 10:21 | NUR ---
Nutrition: Consult for encephalopathy. Pt admitted to Rehab. Takes warfarin. H/o CABG, PVD. Eating 75% of Heart Healthy diet. Wt stable at 115#. Labs: BUN 49, cr 1.9, BG 80s, albumin 2.9. RX noted. Forgetful. No nutrition concerns at this time. Will follow weekly.
--- NOTE | 2018-03-20 14:01 | NUR ---
SW met with pt to complete initial assessment, introduce self, and SW role on rehab unit. Pt dtr Kassandra and pt son in law in the room visiting. Pt lives at home alone with her two dtrs closeby and they say that the pt family could provide 24/7 care at home if needed. Pt dtr Kassandra numbers: [phone] and [phone]. Pt has a walker and a cane at home; her house is a split level. Pt wonders about getting a sling for her arm and her dtr mentioned compression socks. SW reviewed team conference summary with pt and family and discussed plan for pt to remain on rehab unit at least one more week with team to reassess pt length of stay during team conference on next Sunday. SW to continue to follow to assist with safe dc planning.
--- NOTE | 2018-03-20 18:12 | NUR ---
PT HAS PARTICIPATED WITH THERAPIES AND NAPPED THIS AFTERNOON. PRN FOR RT.SHOULDER PAIN GIVEN WITH TRAMADOL HAVING BETTER EFFECT THIS AFTERNOON. PL. TYLENOL GIVEN THIS AM. PT OCCASIONALLY CONFUSED ADN THINKS SHE IS AT HOME AND IS REDIRECTED.PT CALLS FOR ASSIST TO BATHROOM AND VOIDS WELL AND HAS HAD LARGE BM TODAY. PT TRANSFERRS WITH MIN ASSIST OF 1,GAITBELT AND WALKER. PT PROGRESSES TOWARDS GOALS AND HOURLY ROUNDING CONTINUES.
[2018-03-20 19:30] VITALS: BP 112/62
[2018-03-21 04:26] LABS: INR 3.8; PROTIME 35.9 Seconds (9.20-11.50)
--- NOTE | 2018-03-21 04:37 | NUR ---
ASSUMED CARE OF PT AT 1900 PT ALERT AND ORIENTED BUT CAN BE CONFUSED AT NIGHT. PT AMBULATED FROM CHAIR TO BED WITH WALKER AND GB THEN LATER GOT TO THE BR VIA HER W/C. PT HAD TRAMADOL ONCE FOR PAIN OVERNIGHT HEN SLEPT THROUGH THE NIGHT. WILL CONTINUE PLAN OF CARE.
[2018-03-21 08:00] VITALS: BP 122/53
[2018-03-21 20:00] VITALS: BP 117/50
[2018-03-22 04:53] LABS: INR 3.8; PROTIME 36.1 Seconds (9.20-11.50)
--- NOTE | 2018-03-22 05:03 | NUR ---
ASSUMED PATIENT CARE AT 1900. PATIENT ALERT AND ORIENTED TIMES FOUR. ABLE TO AMBULATE WITH STB TO THE RESTROOM. MANAGES CLOTHING INDEPENDENTLY WITH SOME SET-UP HELP. MANAGES TOILETING INDEPENDENTLY. USES CALL LIGHT APPROPRIATELY. MINOR COMPLAINTS OF PAIN, CONTROLLED WITH ORAL MEDS. [ATIENT RESTING IN BED AT THIS TIME, EYES CLOSED, CALL LIGHT IN REACH. STITCHDOWN THREAD LASTER AND HOURLY ROUNDING COMPLETED DOCUMENTED.
[2018-03-22 07:38] VITALS: BP 108/33
--- NOTE | 2018-03-22 15:23 | NUR ---
ASSESSMENT COMPLETED REFER TO COMPUTER CHARTING. PATIENT RESTING IN BED REPORTING NO PAIN, NUASEA OR SHORTNESS OF BREATH. BED IN LOW AND LOCKED POSITION. CALL LIGHT WITHIN REACH. PATIENT ON ROOM AIR. PATIENT WORKING WITH THEARPY THIS SHIFT. WILL CONTINUE TO MONITOR THIS SHIFT.
[2018-03-22 20:04] VITALS: BP 138/56
[2018-03-23 04:33] LABS: INR 3.4; PROTIME 32.5 Seconds (9.20-11.50)
--- NOTE | 2018-03-23 04:44 | NUR ---
PATIENT SLEPT WELL DURING THIS SHIFT. PT USES CALL LIGHT APPROPRIATELY FOR ASSISTANCE TO BATHROOM. PT UP WITH G.BELT, WALKER AND STANDBY ASSIST. PT VOIDS YELLOW URINE; HAD BOWEL MOVEMENT AT BEGINNING OF SHIFT. PT ABLE TO SWALLOW PILLS WITH NO PROBLEMS. PT C/O ARM PAIN, TYLENOL AND ULTRAM GIVEN. PT DENIES NEEDS AT THIS TIME. FREQUENTLY USED ITEMS AND CALL LIGHT WITHIN REACH. SIDERAILS UPX4 AND BED ALARM ON. WILL CONTINUE TO MONITOR.
[2018-03-23 07:55] VITALS: BP 121/47
[2018-03-23 08:00] VITALS: BP 121/47
--- NOTE | 2018-03-23 17:47 | NUR ---
PATIENT HAS BEEN A/O X 4 THIS SHIFT, CAN BE FORGETFUL AND NEEDING VERBAL CUES FOR TASKS AT TIMES. PATIENT UP TO CHAIR WITH SBA, GB, AND WALKER. PATIENT AMBULATING TO BATHROOM, ABLE TO COMPLETE CHAPARRITA-CARE AND MANAGE CLOTHING ADJUSTMENTS WITH SUPERVISION. PATIENT MEDICATED FOR SHOULDER PAIN X 1 WITH GOOD RELIEF. PARTICIPATED IN ALL THERAPIES THIS SHIFT. TOLERATING DIET AND TAKING ORAL FLUIDS WELL. PATIENT'S FAMILY IN TO VISIT THIS AFTERNOON. BED AND CHAIR ALARMS UTILIZED. HOURLY ROUNDING MAINTAINED. CALL LIGHT WITHIN REACH. WILL CONTINUE WITH PLAN OF CARE.
[2018-03-24 04:05] LABS: INR 2.5; PROTIME 24.3 Seconds (9.20-11.50)
--- NOTE | 2018-03-24 05:02 | NUR ---
ASSUMED CARES AT 1920. ALERT AND ORIENTED BUT FORGETFUL AND CONFUSED AT TIMES. C/O PAIN TO RIGHT SHOULDER/ARM. PAIN MEDS GIVEN. SHE IS A SBA WITH GAIT BELT AND WALKER. UP TO BATHROOM. DOES OWN CARES. TAKES PILLS WHOLE WITHOUT ISSUES. SLEPT OFF AND ON. USED CALL LIGHT APPROPRIATELY. BED ALARM ON.
[2018-03-24 09:21] VITALS: BP 140/52
[2018-03-24 09:30] VITALS: BP 140/52
--- NOTE | 2018-03-24 18:23 | NUR ---
PATIENT HAS BEEN A/O X 4, SLIGHTLY FORGETFUL THIS SHIFT, NO PERIODS OF CONFUSION NOTED THIS SHIFT. PATIENT UP SBA WITH GAITBELT AND WALKER THIS SHIFT. TO DINING ROOM FOR MEALS. PATIENT AMBULATED FROM PATIENT ROOM TO DINING ROOM WITH GAITBELT AND WALKER THIS SHIFT. PATIENT REFUSED BATH, IS SUPERVISION FOR GROOMING. PATIENT IS MINIMAL ASSIST FOR DRESSING. PATIENT MEDICATED FOR SHOULDER PAIN THIS AM WITH RELIEF NOTED. PATIENT ABLE TO HAVE LARGE BM THIS AFTERNOON. HAS FAIR APPETITE AND IS TAKING ORAL FLUIDS WELL. VISITED WITH FAMILY THIS AFTERNOON. HOURLY ROUNDING COMPLETED. CALL LIGHT WITHIN REACH. WILL CONTINUE WITH PLAN OF CARE.
[2018-03-24 20:37] VITALS: BP 105/52
[2018-03-25 04:58] LABS: INR 1.9; PROTIME 18.1 Seconds (9.20-11.50)
[2018-03-25 05:07] LABS: ALBUMIN 2.7 g/dL (3.4-5.0); CALCIUM 8.3 mg/dL (8.5-10.1); HEMATOCRIT 26.9 % (37.0-47.0); HEMOGLOBIN 8.7 gm/dL (12.0-15.0); MAGNESIUM 2.2 mg/dL (1.8-2.4); MCH 30.4 pg (26.0-34.0); MCHC 32.3 g/dL (28.0-37.0); MCV 94.3 fL (80.0-100.0); POTASSIUM 5.1 mmol/L (3.5-5.1); RBC 2.85 mil/uL (4.20-5.00); RDW-CV 17.7 % (10.5-14.5); TOTAL BILIRUBIN 0.3 mg/dL (<0.1-1.0); TOTAL PROTEIN 5.6 g/dL (6.4-8.2); WBC 6.2 thou/uL (4.0-11.0)
--- NOTE | 2018-03-25 05:33 | NUR ---
ASSUMED CARES AT 1920. ALERT AND ORIENTED. NOT FORGETFUL AND CONFUSED TONIGHT. DISCUSSED NEED FOR SLEEP AID. RESTORIL WAS GIVEN PER PT REQUEST. C/O PAIN TO RIGHT ARM AND LEG. PAIN MEDS GIVEN. SBA WITH GAIT BELT AND WALKER. UP TO BATHROOM. DOES OWN CARES. SLEPT VERY WELL AFTER SLEEP AID GIVEN. USING CALL LIGHT APPROPRIATELY. BED ALARM ON.
[2018-03-25 07:30] VITALS: BP 155/43
--- NOTE | 2018-03-25 17:13 | NUR ---
SHIFT NOTE - PT PARTICIPATED IN THERAPY TODAY. PT ABLE TO AMBULATE TO [facility] FOR LUNCH AND DINNER. PT HAD MULTIPLE VISITORS TODAY. PT ABLE TO AMBULATE TO FROM CHAIR WITH WALKER WITHOUT DIFFICULTY.
[2018-03-25 20:09] VITALS: BP 124/41
--- NOTE | 2018-03-26 05:29 | NUR ---
ASSUMED CARES AT 1920. PT ALERT AND ORIENTED X 4. NO CONFUSION NOTED. SOMEWHAT FORGETFUL. HAS BEEN MORE TALKATIVE. IS CONCERNED ABOUT HAVING HER COUMADIN HELD PAST FEW DAYS. PT NEEDS REASSURANCE THAT SHE DID GET COUMADIN LAST NIGHT. PT DENIED NEED FOR PAIN MED OR SLEEP AID. MIN ASSIST WITH GAIT BELT AND WALKER. UP TO BATHROOM. DOES OWN CARES. SLEPT OFF AND ON. CALL LIGHT IN REACH AND BED ALARM ON.
[2018-03-26 05:38] LABS: INR 1.5; PROTIME 14.1 Seconds (9.20-11.50)
[2018-03-26 09:16] VITALS: BP 151/41
[2018-03-26 09:22] LABS: URINE BILIRUBIN NEGATIVE (Negative); URINE BLOOD 1+ (Negative); URINE CLARITY CLEAR; URINE COLOR YELLOW; URINE GLUCOSE-RANDOM NEGATIVE (Negative); URINE KETONES NEGATIVE (Negative); URINE LEUKOCYTES-REFLEX NEGATIVE (Negative); URINE NITRITE-REFLEX NEGATIVE (Negative); URINE PROTEIN TRACE (Negative); URINE UROBILINOGEN 0.2 E.U./dl (0.2-1.0)
[2018-03-26 09:40] LABS: BACTERIA-REFLEX 1-9 Few /HPF (None Seen); CASTS None Seen /LPF (None Seen); MUCUS None Seen strn/LPF (None Seen); SQUAMOUS 0-3 Few /LPF (0-3); URINE RBC 0-2 Rare /HPF (0-2); URINE WBC-REFLEX None Seen /HPF (0-5)
[2018-03-26 09:41] LABS: CRYSTALS None Seen /LPF (None Seen)
--- NOTE | 2018-03-26 11:14 | NUR ---
SW called and spoke with pt dtr Kassandra in preparation for team conference tomorrow. Pt dtr said she noticed pt was not out of bed by herself and SW explained fall risk and reasoning that every pt on rehab unit has to call for assistance/supervision for ambulation (at least until pt is near to dc, then team assesses whether or not pt would be able to be mod I in pt room. Pt dtr concerned pt would be able to dc home alone and said that the pt family is considering SNF or trying to convince pt to move in with one of pt dtrs. Pt dtr said she thought pt confusion was better. Pt dtr expressed that she thinks pt will want to be able to dc home alone soon. Pt dtr said she would count on rehab team to provide recommendations and guidance if pt would need more assistance at dc. SW to continue to follow to assist with safe dc planning.
--- NOTE | 2018-03-26 16:45 | NUR ---
ASSUMMED CARE OF PT AT 0730, PT SLIGHTLY CONFUSED THIS AM, BUT ORIENTED, FORGETFUL AT TIMES, PT TRANSFERS WITH SBA GB AND WALKER, PT COMPLAINS OF PAIN IN RIGHT ARM AND SHOULDER, MEDICATED PER ORDER, VOIDS PER TOILET, BM X 1 THIS SHIFT, UA SENT AND PHYSICIAN AWARE OF RESULTS, TAKING FOOD AND FLUIDS WELL, PARTICIPATED IN ALL THERAPIES, HOURLY ROUNDING COMPLETED, ASSESSMENT COMPLETE, WILL CONTINUE TO MONITOR.
[2018-03-26 20:38] VITALS: BP 133/51
--- NOTE | 2018-03-27 05:02 | NUR ---
ASSUMED PT CARE AT 1930. PT ALERT AND ORIENTED X4, VISITING WITH FAMILY. PT CAN BE FORGETFUL AT TIMES BUT POLITE AND COOPERATIVE WITH CARES. PT TRANSFERS WITH SBA, GAIT BELT AND WALKER. TAKES PILLS WHOLE WITH WATER WITHOUT DIFFICULTY. PT DENIED PAIN. SLEPT WELL OVERNIGHT. CALL LIGHT AND FREQUENTLY USED ITEMS WITHIN REACH. HOURLY ROUNDING IN PROGRESS, WILL CONTINUE TO MONITOR.
[2018-03-27 07:22] LABS: INR 1.3; PROTIME 13.1 Seconds (9.20-11.50)
[2018-03-27 09:00] VITALS: BP 139/56
--- NOTE | 2018-03-27 14:47 | NUR ---
SW met with pt and pt 2 dtrs and one son in law to review team conference summary. Plan for pt to remain on rehab unit to continue therapies for at least one more week with team to reassess pt length of stay next Sunday and for pt to dc next Thursday 04/05 to home alone with services and family and neighbor support to check on pt frequently and assist with meds, cooking, cleaning, and finances. Pt and pt family in agreement with plan. SW to continue to follow to assist with safe dc planning.
--- NOTE | 2018-03-27 16:21 | NUR ---
PT HAS PARTICIPATED WITH THERAPIES AND CALLS FOR ASSIST NEEDS. PT AMBULATES WITH WALKER,GAITBELT AND SBA OF 1 AND HAS AMBULATED TO AND FROM DINNINGROOM TODAY. PT ALERT AND ORIETNATED BUT DOES REPEAT SELF.PT CONTINENT OF B+B AND HAS HAD BM TODAY.PT CONTINUES TO PROGRESS TOWARDS GOALS AND HOURLY ROUNDING CONTINUES.
[2018-03-27 20:10] VITALS: BP 103/58
[2018-03-28 04:08] LABS: INR 1.3; PROTIME 12.9 Seconds (9.20-11.50)
--- NOTE | 2018-03-28 05:42 | NUR ---
ASSUMED PT CARE AT 1930. PT ALERT AND ORIENTED X4, POLITE AND COOPERATIVE WITH CARES. PT SLIGHTLY CONFUSED OVERNIGHT, HAD TROUBLE USING CALL LIGHT AND WOULD VERBALLY CALL OUT INSTEAD. UP WITH SBA, GAIT BELT AND WALKER X3 OVERNIGHT TO VOID. NO STOOL THIS SHIFT. HEATING PAD TO LEFT SHOULDER. PRN PAIN MEDICATION ONCE THIS SHIFT PER MAR FOR LEFT SHOULDER AND ARM PAIN. PT TAKES PILLS WHOLE WITH WATER WITHOUT DIFFICULTY ONCE PILLS ARE PLACED IN HER MOUTH. CALL LIGHT AND FREQUENTLY USED ITEMS WITHIN REACH. HOURLY ROUNDING IN PROGRESS, WILL CONTINUE TO MONITOR.
[2018-03-28 08:02] VITALS: BP 113/82
--- NOTE | 2018-03-28 18:47 | NUR ---
PT HAS PARTICIPATED WITH THERAPIES AND REPORTS LESS PAIN WITH USE OF LIDOCAINE PATCH THIS AFTERNOON. PT CALLS FOR ASSIST TO BATHROOM AND VOIDS WELL. PT EATS MEALS IN DINNINGROOM AND IS ASSISTED WITH OPENING CARTONS AND SMALL PACKAGES. PT REMAINS ALERT AND ORIENTATED AND PROGRESSES TOWARDS GOALS. HOURLY ROUNDING CONTINUES.
[2018-03-28 20:05] VITALS: BP 125/43
--- NOTE | 2018-03-29 05:01 | NUR ---
ASSUMED CARES AT 1920. ALERT AND ORIENTED. PLEASANT. DID WAKE UP DURING THE NIGHT WITH SLIGHT CONFUSION. PT REDIRECTED. SBA WITH GAIT BELT AND WALKER. UP TO BATHROOM. DOES OWN CARES. DID HAVE URINARY ACCIDENT X 1. C/O RIGHT SHOULDER PAIN. SAYS THAT LIDODERM PATCH IS HELPING. VOLTAREN GELL APPLIED TO SHOULDER. DENIED NEED FOR PAIN PILL. SLEPT MOST OF THE NIGHT. USING CALL LIGHT APPROPRIATELY. BED ALARM ON.
[2018-03-29 05:05] LABS: INR 1.4; PROTIME 13.4 Seconds (9.20-11.50)
[2018-03-29 08:35] VITALS: BP 128/49
--- NOTE | 2018-03-29 18:09 | NUR ---
PT CARE ASSUMED AT 0730, AM ASSESSMENT AND VITAL SIGNS COMPLETED DOCUMENTED. PT HAS BEEN PLEASANT AND COOPERATIVE, WELL ORIENTED THIS SHIFT. PT HAS COMPLETED ALL THERAPY SESSIONS SCHEDULED AND IS MAKING GOOD PROGRESS TOWARD GOALS. HOURLY ROUNDING AND FALL PRECAUTIONS IN PLACE.
[2018-03-29 19:55] VITALS: BP 117/32
[2018-03-30 04:55] LABS: INR 1.6; PROTIME 15.4 Seconds (9.20-11.50)
--- NOTE | 2018-03-30 05:45 | NUR ---
PT SLEPT SOUNDLY DURING THE NIGHT, UP WITH GAIT BELT AND WALKER TO THE BATHROOM TO VOID, WORE CHAPARRITA PAD, NEEDED ASSIST PULLING PANTS UP AND DOWN, GOT INTO BED BY SELF BUT NEEDED PULLED UP BY STAFF. NEEDS ASSIST PUTTING PILLS INTO MOUTH. ASSIST TO CHANGE CLOTHES LAST NIGHT. PT PLEASANT, FORGETFUL, PRN PAIN MEDICATIONS FOR RIGHT SHOULDER PAIN. REPOSITIONING DONE WELL A PILLOW FOR SUPPORT. CALL LIGHT IN REACH, BED ALARM ON FOR SAFETY, WILL CONTINUE TO MONITOR
[2018-03-30 07:38] VITALS: BP 106/35
--- NOTE | 2018-03-30 17:46 | NUR ---
ASSUMED CARE AT 0730 PATIENT ALERT/ORIENTED FORGETFUL AT TIMES, UP WITH ASSIST OF ONE AND WALKER AND GAIT BELT, TO DINING ROOM FOR MEALS, PARTICIPATED IN ALL THERAPIES TODAY, BED/CHAIR ALARMS IN PLACE, CALL LIGHT IN REACH, HOURLY ROUNDING COMPLETED. PT HAD A STERIOD INJECTION TO RIGHT SHOULDER THIS AFTERNOON BY DR WARNER. BAINDAID TO SITE, PATIENT RECIEVED XANAX X1 THIS SHIFT FOR ANXIETY AND TRAMADOL X1 THIS SHIFT FOR RIGHT SHOULDER PAIN
[2018-03-30 20:00] VITALS: BP 124/50
--- NOTE | 2018-03-31 05:16 | NUR ---
PT SLEPT SOUNDLY DURING THE NIGHT, PLEASANT, UP SBA AND WALKER TO THE BATHROOM. SUPERVISION WHILE TOILETING. PT PLEASANT, ALERT AND ORIENTED WITH FORGETFULNESS, CALL LIGHT IN REACH, BED ALARM ON FOR SAFETY, WILL CONTINUE TO MONITOR
[2018-03-31 05:28] LABS: PROTIME 25.4 Seconds (9.20-11.50)
[2018-03-31 05:46] LABS: INR 2.6
[2018-03-31 07:49] VITALS: BP 146/62
--- NOTE | 2018-03-31 08:16 | PLAN ---
[address] [address] REHAB UNIT PLAN OF CARE Name: EMMA MARTINEZ Room: [address] IN ..#: [id number] Admission: 03/19/18 Attend Phys: Zulma Paula DO Discharge: Date of : [birth year] Report #: [id number] THIS REPORT FOR: //name// CC: Zulma Paula Bruce Cooley This is an 87-year-old female admitted to inpatient rehabilitation to facilitate safe discharge home, status post fall in the home setting. 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 She is participating in therapies, has needs in physical and occupational therapy as well as speech and language pathology. Previous level of function was independent to modified independent with activities of daily living. Current level of function is eybdohg-gw-jrguphuf assistance of 1-2 depending on therapy, activity and time of day. Estimated length of stay is 12-14 days with discharge disposition to the home setting with supportive family and an accessible house. MEDICAL PROGNOSIS: Good. REHABILITATION PROGNOSIS: Good. Physical therapy will see the patient 60-90 minutes per day, 5 days per week, working on upper and lower body strength, balance, coordination, navigation. Occupational therapy will work with the patient 60-90 minutes per day, 5 days per week, working on upper and lower body strength, balance, coordination, navigation, bathing, dressing, and toileting. Speech and language pathology will work with the patient 30-90 minutes per day, 5 days per week, working on memory, cognition, and expression. This is an overall plan of care, may change from time to time, we will team weekly and make changes to plan of care as needed. <ELECTRONICALLY SIGNED> By: Zulma Paula DO 03/31/18 0816 1049 [id number] Paula DO /nt
--- NOTE | 2018-03-31 18:31 | NUR ---
ASSUMED CARE AT 0730 PATIENT ALERT/ORIENTED WITH PERIODS OF FORGETFUL/CONFUSION. UP WITH STANDBY ASSIST WITH WALKER AND GAIT BELT, PAIN MEDS GIVEN X2 THIS SHIFT WITH FAIR RELIEF. RESTED THROUGHOUT THE DAY, WALKED AROUND UNIT X2 WITH STAFF. TAKES PILL WHOLE WITH WATER. HOURLY ROUNDING COMPLETED, BED/CHAIR ALARMS IN PLACE, CALL LIGHT IN REACH. TO DINING ROOM FOR LUNCH TODAY, FAMILY BROUGHT IN DINNER AND THEY ATE IN HER ROOM
[2018-03-31 20:00] VITALS: BP 132/50
--- NOTE | 2018-04-01 01:10 | NUR ---
ASSUMED PT CARE AT 1930. ASSESSMENT COMPLETED CHARTED. C/O SHOULDER PAIN NOTED AND USED HEATING PAD AND VOLTAREN GEL. PT IS RESTING COMFORTABLY IN BED AT THIS TIME. ABLE TO MAKE SOME NEEDS KNOWN, BED ALARM ON. UP WITH SBA WITH WALKER AND GAIT BELT TO BATHROOM. WILL CONTINUE TO MONITOR.
[2018-04-01 04:24] LABS: PROTIME 40.3 Seconds (9.20-11.50)
[2018-04-01 04:29] LABS: INR 4.2
[2018-04-01 08:00] VITALS: BP 118/50
--- NOTE | 2018-04-01 15:51 | NUR ---
AM ASSESSMENT AND VITAL SIGNS COMPLETED DOCUMENTED. PT HAS BEEN PLEASANT, COOPERATIVE AND WORKS WITH ALL THERAPIES WITHOUT COMPLAINTS. PT HAS NOT COMPLAINED OF RIGHT SHOULDER PAIN THIS SHIFT. FALL PRECAUTIONS AND HOURLY ROUNDING CONTINUE.
[2018-04-01 20:00] VITALS: BP 149/57
[2018-04-02 04:47] LABS: INR 4.1; PROTIME 39.2 Seconds (9.20-11.50)
--- NOTE | 2018-04-02 05:16 | NUR ---
ASSUMED CARES AT 1920. ALERT AND ORIENTED. PT WANTS TO BE ABLE TO GO HOME BUT IS WORRIED ABOUT BEING ABLE TO TRANSFER IN/OUT OF BED. PAIN MEDS GIVEN FOR RIGHT SHOULDER PAIN. MIN ASSIST WITH GAIT BELT AND WALKER. UP TO BATHROOM. DOES OWN CARES. LEGS ELEVATED ONTO PILLOW. SLEPT WELL MOST OF THE NIGHT. USED CALL LIGHT APPROPRIATELY. BED ALARM ON.
[2018-04-02 08:03] VITALS: BP 142/60
--- NOTE | 2018-04-02 10:25 | NUR ---
SW tried to call to follow up with pt dtr Kassandra in preparation for team conference tomorrow. Pt dtr did not answer so SW left detailed message requesting call back with any questions or comments to present to team on pt/family behalf. Plan for reteam with possible dc on Sunday. SW to continue to follow to assist with safe dc planning.
[2018-04-02 20:00] VITALS: BP 130/44
[2018-04-03 04:44] LABS: PROTIME 28.7 Seconds (9.20-11.50)
--- NOTE | 2018-04-03 05:03 | NUR ---
ASSUMED CARES AT 1920. PT ALERT AND ORIENTED BUT MORE ANXIOUS AT BEDTIME TONIGHT. CONTINUES TO WORRY ABOUT BEING ABLE TO GO HOME AND ASKING ABOUT HER COUMADIN. NEEDED MUCH REASSURANCE FROM RN. PT RESTLESS IN RECLINER AND WAS GETTING UP WITHOUT CALLING AND SETTING OFF ALARM. REMINDED PT TO CALL BEFORE GETTING UP. PT AGREEABLE TO TAKING PAIN MEDS FOR RIGHT SHOULDER PAIN. MIN ASSIST WITH GAIT BELT AND WALKER. UP TO BATHROOM. DOES OWN CARES. SLEPT WELL AFTER TAKING PAIN MEDS. CALL LIGHT IN REACH AND BED ALARM ON.
[2018-04-03 08:00] VITALS: BP 129/56
--- NOTE | 2018-04-03 16:28 | NUR ---
PT CARE ASSUMED AT 0730, ASSESSMENT AND VITAL SIGNS COMPLETED DOCUMENTED. PT CONTINUE TO PROGRESS TOWARD DISCHARGE GOALS AND WILL LIKELY GO HOME SUNDAY. FALL PRECAUTIONS AND HOURLY ROUNDING CONTINUE, NO ACUTE DISTRESS.
--- NOTE | 2018-04-03 17:00 | NUR ---
JORGE A and Dr Paula met with pt dtr and pt son in law to review team conference summary, plan for pt to dc home on Sunday with family to stay with pt a few days and HH services to follow. Pt preference for [facility]; SW to arrange. JORGE A discussed recommendation of family training and pt dtr Kassandra willing to participate in therapies. JORGE A met with pt, pt dtr and son in law, pt other dtr, and pt neighbor to review team conference summary in more detail and discuss safe dc planning. SW to continue to follow to assist with dc plans for Sunday.
[2018-04-03 19:40] VITALS: BP 116/41
[2018-04-04 04:38] LABS: INR 2.5; PROTIME 24.4 Seconds (9.20-11.50)
--- NOTE | 2018-04-04 05:22 | NUR ---
PT SLEPT MOST OF SHIFT. ASSESSMENT DOCUMENTED. MEDS GIVEN PER E-MAR. PAIN MEDS GIVEN PER E-MAR FOR RIGHT SHOULDER PAIN. PT UP SBA TO BATHROOM THIS SHIFT. PT HAD BM THIS SHIFT. WILL CONTINUE WITH PLAN OF CARE.
[2018-04-04 05:37] VITALS: BP 129/56
[2018-04-04] MEDS ORDERED: LIPITOR 20 MG T20 M1 PO (05:45)
--- NOTE | 2018-04-04 05:50 | NUR ---
PT WOKE UP CONFUSED THIS MORNING. PT TRIED GETTING OUT OF BED TO "FEED HER BABY NEPHEW" PT HAD TO BE REORIENTED MANY TIMES PT KEPT FORGETTING WHERE SHE WAS AND KEPT TALKING TO "THE BABY BOY" WHO SHE THOUGHT WAS IN THE BED WITH HER.
[2018-04-04 07:30] VITALS: BP 163/62
[2018-04-04 10:36] LABS: URINE BILIRUBIN NEGATIVE (Negative); URINE BLOOD TRACE (Negative); URINE CLARITY CLEAR; URINE COLOR YELLOW; URINE GLUCOSE-RANDOM NEGATIVE (Negative); URINE KETONES NEGATIVE (Negative); URINE LEUKOCYTES-REFLEX 1+ (Negative); URINE NITRITE-REFLEX NEGATIVE (Negative); URINE PROTEIN TRACE (Negative); URINE UROBILINOGEN 0.2 E.U./dl (0.2-1.0)
[2018-04-04 10:56] LABS: BACTERIA-REFLEX 1-9 Few /HPF (None Seen); MUCUS 0-3 Light strn/LPF (None Seen); SQUAMOUS 0-3 Few /LPF (0-3); URINE RBC 0-2 Rare /HPF (0-2); URINE WBC-REFLEX 0-5 Rare /HPF (0-5)
[2018-04-04 10:57] LABS: CRYSTALS None Seen /LPF (None Seen)
[2018-04-04 10:58] LABS: HYALINE CASTS 0-3 Few /LPF (None Seen)
--- NOTE | 2018-04-04 15:46 | NUR ---
ASSUMED CARE AT 0730. ALERT ORIENTED BUT DID EXPERIENCE SOME VISUAL HALLUCINATIONS THIS A.M. REDIRECTED EASILY NO FURTHER HALLUCINATIONS. HX OF ENCEPHALOPATHY. TRANSFERS WITH SBA G BELT WALKER AMBULATES TO BR TO VOID X 2 URINE SPECIMEN SENT ORDERED BY DR. TALLEY. PT. PARTICIPATED IN THERAPIES THROUGHOUT THE DAY. PLEASANT WANTING TO GET STRONGER AND BE DISCHARGED HOME TOMORROW. TAKES MEDS WITH WATER WITHOUT DIFFICULTY FEEDS SELF WITH SET UP. APPETITE GOOD AT BREAKFAST. USES CALL LIGHT APPROPRIATELY FOR ASSISTANCE. TO FOR MEALS.
[2018-04-04 20:10] VITALS: BP 130/70
[2018-04-05 04:59] LABS: INR 2.7; PROTIME 27.7 Seconds (9.20-11.50)
--- NOTE | 2018-04-05 05:16 | NUR ---
PT SLEPT SOUNDLY DURING THE NIGHT, UP SUPERVISION WITH WALKER TO THE BATHROOM, PLEASANT,ALERT AND ORIENTED BY FORGETFUL, CALL LIGHT IN REACH, BED ALARM ON FOR SAFETY, WILL CONTINUE TO MONITOR
[2018-04-05 07:12] VITALS: BP 129/56
[2018-04-05 08:00] VITALS: BP 133/55
[2018-04-05] MEDS ORDERED: TRAMADOL 50 MG50 MG PO (08:59)
[2018-04-05] MEDS ORDERED: XANAX 0.25 MG0.25 MG PO (08:59)
[2018-04-05 09:43] VITALS: BP 129/56
--- NOTE | 2018-04-05 09:44 | NUR ---
Pt to dc home today, Sunday, 04/05 with family support. Family to stay with pt over the weekend at least for supervision and assist if needed. SW arranged and faxed referral and final orders/med list to pt/family preference of [facility]. [phone] fax [phone].
[2018-04-05] MEDS ORDERED: COUMADIN 1MG TAB1 M1 PO (09:47)
[2018-04-05 09:48] VITALS: BP 129/56
[2018-04-05 12:33] VITALS: BP 129/56
--- NOTE | 2018-04-05 15:38 | NUR ---
PATIENT PARTICIPATED IN ALL THERAPIES TODAY NO COMPLAINTS OF PAIN, UP WITH STANDBY ASSIST WITH WALKER/GAIT BELT, HOURLY ROUNDING COMPLETED, CALL LIGHT IN REACH, BED/CHAIR ALARMS IN PLACE. DISCHARGE PAPERS REVIEWED WITH DAUGHTER AND PATIENT, ALL QUESTIONS ANSWERED. DAUGHTER GIVEN PRESCRIPTION FOR TRAMADOL, PATIENT HAS ALL OTHER MEDS AT HOME. PATIENT LEFT FLOOR WITH FAMILY AND STAFF VIA W/C TO CAR. ALL BELONGINGS SENT WITH PATIENT.
[2018-04-05 15:41] VITALS: BP 129/56
--- NOTE | 2018-05-20 10:19 | D ---
[facility] [address] [place] [address] DISCHARGE SUMMARY Name: EMMA MARTINEZ Room: [address] IN M.R.#: [id number] Admission: 03/19/18 Attend Phys: Zulma Paula DO Discharge: 04/05/18 Date of : [birth year] Report #: [id number] THIS REPORT FOR: //name// CC: Zulma Paula Bruce Cooley DATE OF SERVICE: 04/05/2018 DISCHARGE DIAGNOSIS: Debility with recent urinary tract infection, weakness and anemia. DISCHARGE DISPOSITION: To home with home health PT, OT and nursing. She will follow with primary care physician within 1 week. Notifications for physician were given. She will maintain a cardiac diet, fall precautions, safety precautions and monitor weight gain. MEDICATIONS: Reviewed and reconciled by myself and are available in the MAR. DISCHARGE PHYSICAL EXAMINATION: GENERAL: Alert, oriented, in no apparent distress. VITAL SIGNS: Reviewed and are stable. HEENT: Head atraumatic, normocephalic. Pupils equal, round, reactive. ABDOMEN: Soft, nontender, nondistended. NEUROLOGIC: Cranial nerves 2-12 are grossly intact. No focal neuro deficits, 5/5 strength in the bilateral upper and lower extremities. SKIN: Warm and dry. No rashes or lesions noted. <ELECTRONICALLY SIGNED> By: Zulma Paula DO 05/20/18 1019 1618 [id number] bridgette Lizama
== END 2018-04-05 15:42 | disposition home health service (06) | DRG 68 ==
LOC: M.REH 17:07
PROVIDERS: Family Medicine; Internal Medicine; ADMIT Physical Medicine & Rehabilitation
PROC: 3E0U33Z Introduction of Anti-inflammatory into Joints, Percutaneous Approach (ICD-10-PCS; principal; 2018-03-30)
DX: I65.23 Occlusion and stenosis of bilateral carotid arteries (principal); N18.4 Chronic kidney disease, stage 4 (severe); N39.0 Urinary tract infection, site not specified; I38 Endocarditis, valve unspecified; K92.0 Hematemesis; I20.0 Unstable angina; I12.9 Hypertensive chronic kidney disease with stage 1 through stage 4 chronic kidney disease, or unspecified chronic kidney disease; B96.20 Unspecified Escherichia coli [E. coli] as the cause of diseases classified elsewhere; G31.84 Mild cognitive impairment of uncertain or unknown etiology; Z96.653 Presence of artificial knee joint, bilateral; Z16.29 Resistance to other single specified antibiotic; Z16.23 Resistance to quinolones and fluoroquinolones; F41.9 Anxiety disorder, unspecified; D64.9 Anemia, unspecified; S16.1XXA Strain of muscle, fascia and tendon at neck level, initial encounter; W18.39XA Other fall on same level, initial encounter; R58 Hemorrhage, not elsewhere classified; M25.522 Pain in left elbow; I73.9 Peripheral vascular disease, unspecified; R29.6 Repeated falls; M19.012 Primary osteoarthritis, left shoulder; Z88.2 Allergy status to sulfonamides; Z79.899 Other long term (current) drug therapy; Z79.82 Long term (current) use of aspirin; Z90.49 Acquired absence of other specified parts of digestive tract; Z90.722 Acquired absence of ovaries, bilateral; Z82.49 Family history of ischemic heart disease and other diseases of the circulatory system; Z79.01 Long term (current) use of anticoagulants; Z90.710 Acquired absence of both cervix and uterus; Y93.89 Activity, other specified; Y92.89 Other specified places as the place of occurrence of the external cause; Y99.8 Other external cause status; Z95.1 Presence of aortocoronary bypass graft; Z95.2 Presence of prosthetic heart valve

== ENCOUNTER → 2018-05-20 | Outpatient (CLI) | payer MEDICARE, OTHER ==
[~2018-05-20] MED LIST changes: +BENGAY GREASELE57 GM TOP; +CEFUROXIME500 MG PO; +LIPITOR 20 MG T20 M1 PO; +MIRALAX17 GM PO; +RESTORIL7.5 MG PO; +XANAX 0.25 MG0.25 MG PO
[2018-05-20 13:36] LABS: ABSOLUTE BASOPHILS 0.1 thou/uL (0.0-0.2); ABSOLUTE EOSINOPHILS 0.2 thou/uL (0.0-0.7); ABSOLUTE LYMPHOCYTES 1.1 thou/uL (0.8-5.3); ABSOLUTE MONOCYTES 0.6 thou/uL (0.0-1.2); ABSOLUTE NEUTROPHILS 4.1 thou/uL (1.6-8.1); EOSINOPHILS 3.2 %; HEMATOCRIT 33.4 % (37.0-47.0); HEMOGLOBIN 10.9 gm/dL (12.0-15.0); LYMPHOCYTES 18.4 %; MCH 30.4 pg (26.0-34.0); MCHC 32.7 g/dL (28.0-37.0); MONOCYTES 9.7 %; MPV 8.2 fl. (7.2-11.1); NUCLEATED RBCS 0 /100WBC; PLATELET COUNT* 167 thou/uL (150-400); POLYS 67.7 %; RBC 3.59 mil/uL (4.20-5.00); RDW-CV 16.2 % (10.5-14.5); WBC 6.1 thou/uL (4.0-11.0)
[2018-05-20 13:43] LABS: URINE BILIRUBIN NEGATIVE (Negative); URINE BLOOD TRACE (Negative); URINE CLARITY CLEAR; URINE COLOR YELLOW; URINE GLUCOSE-RANDOM NEGATIVE (Negative); URINE KETONES NEGATIVE (Negative); URINE LEUKOCYTES-REFLEX NEGATIVE (Negative); URINE NITRITE-REFLEX NEGATIVE (Negative); URINE PROTEIN NEGATIVE (Negative); URINE UROBILINOGEN 0.2 E.U./dl (0.2-1.0)
[2018-05-20 13:45] LABS: CALCIUM 9.9 mg/dL (8.5-10.1); CREATININE 2.4 mg/dL (0.6-1.3); MAGNESIUM 1.9 mg/dL (1.8-2.4); PHOSPHORUS* 3.3 mg/dL (2.5-4.9); POTASSIUM 3.4 mmol/L (3.5-5.1)
[2018-05-20 23:09] LABS: eGFR IF AFRICAN AMERICAN 24 (>59)
[2018-05-21 10:11] LABS: PARATHYROID HORMONE 57 pg/mL (15-65)
== END ==
LOC: M.LAB 12:55 → EDSTATUS 12:56 → M.LAB 12:56
PROVIDERS: Internal Medicine
DX: N18.4 Chronic kidney disease, stage 4 (severe) (principal)

== ENCOUNTER 2018-07-25 20:02 | Inpatient (IN) | payer MEDICARE, OTHER ==
[~2018-07-25] VITALS: Ht 152.4 cm; Wt 54.4 kg
[2018-07-25 20:08] VITALS: BP 123/99
[2018-07-25 20:45] LABS: HEMATOCRIT 39.2 % (37.0-47.0); HEMOGLOBIN 12.8 gm/dL (12.0-15.0); MCHC 32.5 g/dL (28.0-37.0); MCV 92.2 fL (80.0-100.0); MPV 8.1 fl. (7.2-11.1); NUCLEATED RBCS 0 /100WBC; PLATELET COUNT* 128 thou/uL (150-400); RBC 4.26 mil/uL (4.20-5.00); RDW-CV 16.5 % (10.5-14.5); WBC 9.2 thou/uL (4.0-11.0)
[2018-07-25 20:54] LABS: INR 2.3; PROTIME 23.5 Seconds (9.20-11.50)
[2018-07-25 20:56] LABS: CALCIUM 10.1 mg/dL (8.5-10.1); CREATININE 3.3 mg/dL (0.6-1.3)
[2018-07-25 21:10] LABS: ALBUMIN 3.3 g/dL (3.4-5.0); TOTAL BILIRUBIN 0.8 mg/dL (<0.1-1.0); TOTAL PROTEIN 7.5 g/dL (6.4-8.2); TROPONIN-I LEVEL 0.14 ng/mL (<0.06)
[2018-07-25 21:11] LABS: ABSOLUTE LYMPHOCYTES 0.8 thou/uL (0.8-5.3); ABSOLUTE MONOCYTES 0.4 thou/uL (0.0-1.2); ANISOCYTOSIS 1+; OVALOCYTES 1+; PLATELET ESTIMATE DECREASED
[2018-07-25 22:00] VITALS: BP 114/69
[2018-07-25 22:42] VITALS: BP 140/51
--- NOTE | 2018-07-26 02:16 | NUR ---
RECEIVED REPORT AND ASSUMED CARE OF PATIENT FROM ER AT APPROXIMATELY 2230. DAUGHTER AT BEDSIDE AND ANSWERING MOST OF HISTORY QUESTIONS DUE TO PATIENT'S CONFUSION. DAUGHTER STATES THE PATIENT HAS BEEN GETTING MORE CONFUSED AND WEAK THIS PAST FEW WEEKS AND HAS BEEN FALLING MORE OFTEN. SHE USES A WALKER AT HOME AND USES RAILING THROUGHOUT THE HOUSE TO TRANSFER BUT SHE WAS FOUND ON THE TOILET BY HER DAUGHTER AND IT IS SUSPECTED THAT PATIENT WAS THERE FOR A FEW HOURS. PATIENT HAS TOILET BOWL IMPRINT WITH BLANCHABLE REDNESS, WELL ESCORIATION ON CHAPARRITA AREA. BARRIER CREAM BEING APPLIED WITH POSITIONING AND CHAPARRITA CARE. PATIENT HAS BEEN INCONTINENT OF URINE. NO BM ALTHOUGH DAUGHTER STATES SHE HAS BEEN HAVING DIARRHEA AT HOME. PATIENT C/O PAIN IN RIGHT LEG, ACETAMINOPHEN ADMINISTERED AND PATIENT SLEEPING SHORTLY AFTER. CALL LIGHT WITHIN REACH.
[2018-07-26 04:00] VITALS: BP 95/51
[2018-07-26 04:51] LABS: ABSOLUTE BASOPHILS 0.1 thou/uL (0.0-0.2); ABSOLUTE EOSINOPHILS 0.1 thou/uL (0.0-0.7); ABSOLUTE LYMPHOCYTES 0.5 thou/uL (0.8-5.3); ABSOLUTE MONOCYTES 0.6 thou/uL (0.0-1.2); ABSOLUTE NEUTROPHILS 5.8 thou/uL (1.6-8.1); BASOPHILS 0.8 %; EOSINOPHILS 1.2 %; HEMATOCRIT 33.1 % (37.0-47.0); LYMPHOCYTES 6.5 %; MCH 30.4 pg (26.0-34.0); MCHC 33.2 g/dL (28.0-37.0); MCV 91.7 fL (80.0-100.0); MONOCYTES 9.1 %; MPV 8.4 fl. (7.2-11.1); NUCLEATED RBCS 0 /100WBC; PLATELET COUNT* 101 thou/uL (150-400); POLYS 82.4 %; RDW-CV 15.8 % (10.5-14.5); WBC 7.1 thou/uL (4.0-11.0)
[2018-07-26 05:28] LABS: CALCIUM 8.8 mg/dL (8.5-10.1); CREATININE 3.3 mg/dL (0.6-1.3); POTASSIUM 3.5 mmol/L (3.5-5.1)
[2018-07-26 06:00] VITALS: BP 116/56
[2018-07-26 08:02] VITALS: BP 117/44
[2018-07-26 12:00] VITALS: BP 106/48
--- NOTE | 2018-07-26 14:58 | EKG ---
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: Carmen CAMARA : 1930 Requested By: Preston Coon Order Number: [id number] MD: Jordy Desouza Measurements Intervals [place] Rate: 92 P: 54 ND: 164 QRS: -31 QRSD: 107 T: 52 QT: 382 QTc: 473 Interpretive Statements Sinus rhythm Left axis deviation Abnormal R-wave progression, early transition Possible anteroseptal infarct, old inferior scar Minimal ST elevation, lateral leads Compared to ECG 03/13/2018 08:24:10 Left-axis deviation now present Myocardial infarct finding now present ST (T wave) deviation now present Electronically Signed On 07-26-2018 14:57:57 WAITER/WAITRESS TAKE OUT by Jordy Desouza [email or web address] <ELECTRONICALLY SIGNED> By: Jordy Desouza MD, FACC 07/26/18 1457 23 23 Jordy Desouza MD, FAC /EPI
[2018-07-26 15:48] VITALS: BP 124/62
--- NOTE | 2018-07-26 16:39 | NUR ---
SPOKE TO THE PATIENT AND HER DTR'S TO DISUCSS HOME SITUATION, DISCHARGE PLANNING, AND TO INFORM OF THE ROLE OF CM. PATIENT RESTING WITH EYES CLOSED DURRING ASSESSMENT. PATIENT'S DTR'S ANSWERING ALL QUESTIONS. PATIENT'S DTR'S INFORM THAT THE PATIENT IS ALERT AND ORIENTED AND IS ABLE TO CARE FOR HERSELF AT HOME. PATIENT ABLE TO PREPARE OWN MEALS AND DO ADL'S INDEPENDENTLY. PATIENT RESIDES AT HOME ALONE. PATIENT HAS HX OF HH WITH [facility], AND DTR'S INFORM THAT THE PATIENT HOPES TO BE ABLE TO RETURN HOME AT D/C. CM WILL REMAIN AVIALABLE TO ASSIST AND FOLLOW NEEDED.
--- NOTE | 2018-07-26 18:33 | NUR ---
PT UP TO BATHROOM WITH WALKER, MIN ASSIST X1. PT C/O PAIN IN LEGS AND ARMS, RELIEVED WITH TYLENOL. PT ALERT AND ORIENTED X4, PLEASANT. PT STATES SHE LIVES AT HOME ALONE BUT HAS FAMILY COME TO DO RELATIONS COORDINATOR AND FIX MEALS. DAUGHTERS COME DAILY TO PT HOUSE. PT HAD ONE LOOSE BM. NO OTHER C/O TODAY. PT ABLE TO MAKE NEEDS KNOWN, CALL LIGHT IN REACH
[2018-07-26 20:12] VITALS: BP 107/53
[2018-07-27] VITALS: BP 159/63
[2018-07-27 01:44] LABS: URINE BILIRUBIN NEGATIVE (Negative); URINE BLOOD 3+ (Negative); URINE CLARITY TURBID; URINE COLOR YELLOW; URINE GLUCOSE-RANDOM NEGATIVE (Negative); URINE KETONES NEGATIVE (Negative); URINE NITRITE-REFLEX NEGATIVE (Negative); URINE PROTEIN 1+ (Negative); URINE SPECIFIC GRAVITY 1.015 (1.005-1.030); URINE UROBILINOGEN 0.2 E.U./dl (0.2-1.0)
[2018-07-27 01:45] LABS: URINE LEUKOCYTES-REFLEX 3+ (Negative)
[2018-07-27 02:04] LABS: CASTS None Seen /LPF (None Seen); SQUAMOUS 0-3 Few /LPF (0-3); URINE WBC-REFLEX >25 Many /HPF (0-5)
[2018-07-27 02:05] LABS: BACTERIA-REFLEX >30 Many /HPF (None Seen); CRYSTALS None Seen /LPF (None Seen); URINE RBC 3-10 Few /HPF (0-2)
[2018-07-27 04:00] VITALS: BP 103/44
[2018-07-27 05:22] LABS: HEMATOCRIT 32.8 % (37.0-47.0); HEMOGLOBIN 10.7 gm/dL (12.0-15.0); MCH 30.4 pg (26.0-34.0); MCHC 32.7 g/dL (28.0-37.0); MCV 92.8 fL (80.0-100.0); MPV 8.4 fl. (7.2-11.1); RBC 3.54 mil/uL (4.20-5.00); RDW-CV 16.1 % (10.5-14.5); WBC 4.7 thou/uL (4.0-11.0)
[2018-07-27 05:29] LABS: PROTIME 20.7 Seconds (9.20-11.50)
[2018-07-27 05:43] LABS: CALCIUM 8.2 mg/dL (8.5-10.1); CREATININE 3.1 mg/dL (0.6-1.3); POTASSIUM 3.4 mmol/L (3.5-5.1)
--- NOTE | 2018-07-27 07:48 | NUR ---
PATIENT HAD ONE EPISODE OF DIARRHEA, WHICH SHE WAS INCONTINENT OF. PATIENT DENIES NAUSEA. PATIENT GIVEN BED BATH AFTER INCONTINENT STOOL. PATIENT HAS BEEN VOIDING IN BEDSIDE COMMODE, URINE COLLECTED. REFER TO RESULTS OF U/A. PAIN RELIEVED WITH PRN ACETAMINOPHEN. PATIENT RESTED WELL THROUGHOUT NIGHT. REPOSITIONING COMPLETED Q2H. RING ON BOTTOM WHICH WAS BLANCHABLE REDNESS THE DAY PRIOR IS NOW BLISTERING. THIS IS FROM PATIENT SITTING ON HER BEDSIDE COMMODE AT HOME FOR HOURS. PICTURES TAKEN AND PLACED IN CHART. WOUND CONSULT ENTERED. SKIN TEARS DRESSED WITH VASOLINE GAUZE AND ROLLED GAUZE. CALL LIGHT WITHIN REACH
[2018-07-27 08:00] VITALS: BP 121/53
[2018-07-27 12:00] VITALS: BP 98/46
--- NOTE | 2018-07-27 12:45 | CON ---
[address] [address] CONSULTATION Name: EMMA MARTINEZ Room: [address] IN M.R.#: [id number] Admission: 07/25/18 Attend Phys: Lisa Camarillo MD Discharge: Date of : [birth year] Report #: [id number] THIS REPORT FOR: //name// CC: Bruce Araizasawyer Lisa Camarillo DATE OF SERVICE: 07/26/2018 CARDIOLOGY CONSULTATION PATIENT LOCATION: The patient in [facility]. HISTORY OF PRESENT ILLNESS: The patient is a very pleasant 87-year-old female with a history of coronary artery disease and aortic valve disease, status post remote coronary artery bypass grafting and aortic valve replacement with a metallic prosthesis. She has been chronically anticoagulated with Coumadin. She presented after a prolonged period of unresponsiveness at home when she was sitting on the commode for several hours. She was found at home and transferred to the [facility]. She was confused initially, but after rehydration, her state of consciousness has returned to normal and she is feeling more like herself. Mild apraxia was noted, but no additional neurologic abnormalities. She denies chest, neck, jaw or arm discomfort or undue dyspnea. She denies palpitations, dizziness or syncope. Chronic cardiac therapy includes furosemide 40 mg daily, losartan 50 mg daily, Livalo 4 mg daily, warfarin in varying dose schedule and diltiazem 30 mg twice a day. PAST MEDICAL HISTORY: Remarkable for the aforementioned coronary artery disease, aortic valve disease, congestive heart failure, hypertension and some weakness. FAMILY HISTORY: Negative for premature coronary artery disease. SOCIAL HISTORY: She lives independently and does not smoke. REVIEW OF SYSTEMS: Remarkable for the following: Generalized weakness and frailty has been present. She denies recent cardiovascular or pulmonary symptoms. She does note mild muscle weakness, which is diffuse. Remainder is unremarkable. PHYSICAL EXAMINATION: [place] [address] CONSULTATION Name: EMMA MARTINEZ Room: [address] IN [facility]#: [id number] Admission: 07/25/18 Attend Phys: Lisa Camarillo MD Discharge: Date of : [birth year] Report #: [id number] GENERAL: Demonstrates an elderly female, who is alert and appropriate. VITAL SIGNS: Blood pressure is 115/70, pulse rate is 75 and respirations are 18 per minute. NECK: Jugular venous pressure is normal. CHEST EXAMINATION: Clear. CARDIOVASCULAR EXAMINATION: Reveals a normal first heart sound with a prosthetic second heart sound and a grade 2/6 systolic ejection type murmur, without rubs or gallops. ABDOMEN: Mildly obese. EXTREMITIES: Satisfactorily perfused, with modest ecchymotic areas on the extremities, upper and lower. LABORATORY DATA: On admission revealed a hemoglobin of 11.0, white blood cell count of 7000 with a BUN of 64, creatinine 3.3 and potassium 3.5. Total CK 5094. Troponin I maximally 0.21. Electrocardiogram revealed sinus rhythm with significant baseline artifact, possibly inferior wall scar and nonspecific ST-T alterations are noted. IMPRESSION: 1. Episode of alteration of consciousness with prolonged episode of inanition at home and associated rhabdomyolysis. 2. Renal insufficiency with exacerbation by dehydration prior to admission. 3. Coronary artery disease, status post coronary artery bypass grafting. 4. Aortic valve disease, status post aortic valve replacement with a metallic prosthesis. 5. Hypercholesterolemia. 6. History of hypertension. 7. Mild apraxia. RECOMMENDATIONS: 1. Rehydration is currently underway. 2. Would resume oral anticoagulation probably tomorrow, given the construct which is that of a metallic aortic valve placed multiple years ago. 3. Minimal increase in troponin does not suggest significant injury. 4. Would suggest an echocardiogram to evaluate left ventricular size and function as well as the function of the aortic prosthesis. We will follow with you and thank you for allowing us to see the patient back in cardiovascular assessment. <ELECTRONICALLY SIGNED> By: Jordy Desouza MD, FACC 07/27/18 1245 1538 [id number] Desouza MD, FACC /nt
--- NOTE | 2018-07-27 14:25 | CON ---
[address] [address] CONSULTATION Name: EMMA MARTINEZ Room: [address] IN M.R.#: [id number] Admission: 07/25/18 Attend Phys: Lisa Camarillo MD Discharge: Date of : [birth year] Report #: [id number] THIS REPORT FOR: //name// CC: Bruce Araizasawyer Lisa Camarillo DATE OF SERVICE: 07/26/2018 HISTORY OF PRESENT ILLNESS: The patient is an 87-year-old woman who was admitted from the Emergency Room on 07/25/2018. History from the daughters indicate that she had difficulty walking over several days. On last Sunday, she could not go to a because she had difficulty in getting up. She was complaining of pain in the medial thighs. She could not stand up without help. Yesterday, her daughter called her and she did not answer. The patient does live alone, but she has 2 daughters who live close by. When she continued to not supervisor picking crew the phone, one daughter went to the house and found her in the bathroom sitting on the stool. She could not get up from the stool. With help, they got her back in bed and she slept. About 6:00 p.m., she indicated that she needed to go to the bathroom again, but she could not walk and the family then brought her to the Emergency Department where she was admitted. The patient is on Coumadin for a mechanical aortic valve. She has bilateral knee replacements of many years' duration and has been having chronic problems with bending her knees. She uses a walker at home. She can walk okay, but just cannot bend her knees. She has been having a lot of easy bruising as well. The Emergency Room found that she did have mental status change. She was noted to have hallucinations, and she did appear to be confused. She was found to have markedly elevated CK with findings of rhabdomyolysis. A CT scan showed no acute cerebral process. Her creatinine was 3.3 with an estimated GFR of 13. The AST was 203, which could go along with her elevated CPK, which was 5094. The INR was 2.3. Her platelet count was 101,000. She takes pitavastatin or Livalo, losartan, ferrous sulfate, tramadol, Coumadin, aspirin 81 mg and allopurinol for gout. PAST MEDICAL AND SURGICAL HISTORY: Positive for hysterectomy, gallbladder surgery, knee replacements, ovaries removed and aortic valve replacement in 2010. SOCIAL HISTORY: She is a never smoker, never alcohol drinker. ALLERGIES: SHE IS ALLERGIC TO SULFA. REVIEW OF SYSTEMS: Positive for frequent urinary tract infections and frequent bruising. She has had falls. She denies neurological symptoms of headache, visual disturbance, hearing loss or difficulty swallowing[place] [id number] CONSULTATION Name: JUANEMMA Elvin Room: [address] IN [facility]#: [id number] Admission: 07/25/18 Attend Phys: Lisa Camarillo MD Discharge: Date of : [birth year] Report #: [id number] complaints of pain in her medial thigh area bilaterally. PHYSICAL EXAMINATION: VITAL SIGNS: Blood pressure 106/48, pulse 97, temperature 37.0. GENERAL: The patient is a very frail elderly woman who appears her stated age of 87 who was cooperative and pleasant. NECK: Supple. NEUROLOGIC: She is alert and oriented. She could give a relatively good medical narrative. She was forgetful about details, but there was no evidence of hallucinations or delusions. Cranial nerve testing, the pupils were small, but equally round and reactive. Extraocular movements were full. There was no superficial temporal artery tenderness. Facial sensation and mobility were normal. She is edentulous. On motor testing, the patient had some pain on muscle on formal motor testing, particularly proximally in the deltoids, but with encouragement, I believe she has full power in both her proximal and distal muscles of the upper extremities as well as in the lower extremities. No abnormal movements were noted. On sensation testing, the patient had decreased sensation to pin in the feet. She had hyperalgesia in the medial thighs, but she did not have a sensory level or sensory deficit following a specific nerve root or peripheral nerve. Coordination testing revealed good [id number]. She was areflexic throughout. Large bilateral scars noted on the knees. She could get up out of bed with help, but she was very hesitant or unable to take a step suggesting either fear of falling or apraxia. When I had her in bed and she was lying supine, I asked her to simulate riding a bicycle and she could raise both legs up at the same time, but she did have difficulty in producing the required bicycle movements suggesting an apraxia. IMPRESSION: Very elderly woman, with difficulty walking and who was admitted with rhabdomyolysis with elevation of creatinine, who on physical examination now is alert and oriented and who has good strength, but has difficulty walking either because of the pain from the rhabdomyolysis or from an apraxia. Would recommend an MRI without contrast of the brain to rule out a stroke. The patient is on Coumadin and CT scan showed no evidence of hemorrhage. <ELECTRONICALLY SIGNED> By: David Scott MD 07/27/18 1425 1509 [id number] Scott MD /johnnie
--- NOTE | 2018-07-27 16:54 | NUR ---
NURSING FEELS PT. NEEDS SOME STRENGTHENING. SHE WILL GET PT/OT ORDERS. PT.DOES HAVE A HX OF HOME HEALTH WITH [facility] AND WOULD BE OPEN TO USING THEM AGAIN IF NEEDED. [phone]/ [phone].
--- NOTE | 2018-07-27 18:17 | NUR ---
PT HAD ONE SOFT UNFORMED BM. PT C/O LEG PAIN THAT IS MANAGED WELL WITH TYLENOL. FAMILY IN ROOM MOST OF DAY. PT ALERT AND ORIENTED X4 WITH INTERMITTENT CONFUSION I.E. SHE THINKS HER MOTHER IS MAD AT HER BECAUSE SHE HASN'T BEEN HOME IN A WHILE. WHEN ASKED LOC QUESTIONS, PT ANSWERS APPROPRIATELY. PT UP TO BSC WITH MIN ASSIST. PT ABLE TO MAKE NEEDS KNOWN, CALL LIGHT IN REACH.
[2018-07-27 20:00] VITALS: BP 90/45
[2018-07-28] VITALS: BP 109/47
[2018-07-28 04:00] VITALS: BP 112/34
--- NOTE | 2018-07-28 05:34 | NUR ---
PATIENT CONTINUES TO HAVE LOOSE STOOLS THROUGHOUT SHIFT, ALTHOUGH NOT CDIFF-LIKE. PATIENT HAS PERIODS OF FORGETFULNESS AND CONFUSION AT TIMES. DUE TO POSSIBLE SIDE EFFECTS OF BENTLY, MEDICATION HELD THIS AM. WILL PASS ON TO DAY SHIFT RN TO CONSULT WITH PHYSICIAN ON THE SIDE EFFECTS OF MEDICATION. PATIENT USING BEDSIDE COMMODE TO VOID. IVF INFUSING PER ORDERS. CALL LIGHT WITHIN REACH
[2018-07-28 08:42] VITALS: BP 112/55
--- NOTE | 2018-07-28 17:06 | NUR ---
ASSUMED CARE OF PATIENT AFTER REPORT AT APPROX 0720. ALERT AND OREITNED X2-3. ASSESSMENT COMPLETED AND CHARTED. VSS ON ROOM AIR. NO COMPLAINTS OF PAIN, NAUSEA, OR SOA. FLUIDS AND ANTIBIOTICS INFUSED ORDERED THEN SALINE LOCKED ORDRED. ELECTROLYTES REPLACED PER PROTOCOL. PATIENT UP TO CHAIR TODAY WITH WALKER AND GAIT BELT. USING BEDSIDE COMMODE WITH STAFF ASSISTANCE. NSR ON THE MONITOR. HOURLY ROUNDS MAINTAINED, FALL PRECAUTIONS IN PLACE, CALL IGHT IN REACH, NURSING WILL CONTINUE TO MONITOR.
[2018-07-28 20:00] VITALS: BP 117/52
[2018-07-29 00:03] VITALS: BP 126/54
[2018-07-29 04:36] VITALS: BP 132/75
--- NOTE | 2018-07-29 04:57 | NUR ---
Pt resting comfortable in bed. Pt SR on monitor. Remains on RA. Pt has had moments of confusion this shift as reported by day shift RN yesterday. AM labs to be reviewed. Required one dose of pain medication during shift.
[2018-07-29 05:22] LABS: ABSOLUTE BASOPHILS 0.1 thou/uL (0.0-0.2); ABSOLUTE EOSINOPHILS 0.5 thou/uL (0.0-0.7); ABSOLUTE LYMPHOCYTES 1.1 thou/uL (0.8-5.3); ABSOLUTE MONOCYTES 0.7 thou/uL (0.0-1.2); BASOPHILS 0.8 %; EOSINOPHILS 6.8 %; HEMATOCRIT 31.7 % (37.0-47.0); HEMOGLOBIN 10.6 gm/dL (12.0-15.0); LYMPHOCYTES 15.1 %; MCH 30.4 pg (26.0-34.0); MCHC 33.3 g/dL (28.0-37.0); MCV 91.1 fL (80.0-100.0); MONOCYTES 9.3 %; MPV 8.7 fl. (7.2-11.1); NUCLEATED RBCS 0 /100WBC; PLATELET COUNT* 101 thou/uL (150-400); RBC 3.47 mil/uL (4.20-5.00); RDW-CV 15.7 % (10.5-14.5); WBC 7.3 thou/uL (4.0-11.0)
[2018-07-29 05:30] LABS: CALCIUM 8.5 mg/dL (8.5-10.1); CREATININE 2.2 mg/dL (0.6-1.3); INR 2.4; MAGNESIUM 1.8 mg/dL (1.8-2.4); PHOSPHORUS* 2.1 mg/dL (2.5-4.9); POTASSIUM 4.7 mmol/L (3.5-5.1); PROTIME 24.2 Seconds (9.20-11.50)
[2018-07-29 08:00] VITALS: BP 107/48
[2018-07-29 11:16] VITALS: BP 117/54
--- NOTE | 2018-07-29 11:17 | NUR ---
Nutrition: Pt admitted with weakness. H/o renal issues, HTN, CAD. Dehydrated at admit, weighing 110#. Now weighs 120#. IV ABX infusing. On Fe, vit C. Consult received for "poor po intake." Pt eating 50% of meals. Labs: BUN 54, cr 2.2, BG 88, alb 1.9, prealb 9.2. +BM yday. RD ordered Nepro vanilla for added nutrition. Mild risk at this time. Will follow up 08/03/18.
--- NOTE | 2018-07-29 12:04 | NUR ---
SPOKE WITH PT.AND DAUGHTERS ABOUT DISCHARGE PLANNING. PT.WANTS TO GO HOME. DAUGHTERS WANT PT.TO GO TO SNF FOR THERAPIES TO GET STRONGER. THEY WOULD LIKE HER TO GO TO [facility]. FILIPPO/Nimo HERE TO DO EVAL. CM WILL REVISIT PT.AFTER P.T.EVAL. DISCUSSED WITH .
--- NOTE | 2018-07-29 12:59 | 2DMMODE ---
[place] [address] 2 D/M-MODE ECHOCARDIOGRAM Name: EMMA MARTINEZ Room: [address] IN [facility]#: [id number] Admission: 07/25/18 Attend Phys: Lisa Camarillo MD Discharge: Date of : [birth year]/17/[birth year] Date of Service: 07/29/18 1259 Report #: [id number] THIS REPORT FOR: //name// APPROVED REPORT Study performed: 07/29/2018 10:01:32 EXAM: Comprehensive 2D, Doppler, and color-flow Echocardiogram Patient Location: In-Patient Room #: [facility] Status: routine BSA: 1.45 HR: 90 bpm BP: 132/75 mmHg Rhythm: NSR Other Information Study Quality: Good Indications Aortic prosthesis, evaluate LV function 2D Dimensions IVSd: 12.07 (7-11mm) LVOT Diam: 17.45 (18-24mm) LVDd: 36.83 mm PWd: 11.67 (7-11mm) LVDs: 23.87 (25-40mm) Volumes Left Atrial Volume (Systole) LA ESV Index: 33.30 mL/m2 Aortic Valve AoV Peak Carroll.: 2.11 m/s AO Peak Gr.: 17.78 mmHg LVOT Max P.34 mmHg AO Mean Gr.: 10.21 mmHg LVOT Mean P.11 mmHg LVOT Max V: 1.26 m/s AO V2 VTI: 37.02 cm LVOT Mean V: 0.81 m/s VENKATA (VTI): 1.62 cm2 LVOT V1 VTI: 25.03 cm Mitral Valve MV Mean Gr.: 10.58 mmHg E/A Ratio: 0.82 MV Decel. Time: 332.88 ms MV E Max Carroll.: 1.67 m/s MV PHT: 96.53 [place] [address] 2 D/M-MODE ECHOCARDIOGRAM Name: EMMA MARTINEZ Room: [address] IN ..#: [id number] Admission: 07/25/18 Attend Phys: Lisa Camarillo MD Discharge: Date of : 11/17/[birth year] Date of Service: 07/29/18 1259 Report #: [id number] MVA (PHT): 2.28 cm2 TDI E/Lateral E': 23.86 E/Medial E': 23.86 Medial E' Carroll.: 0.07 m/s Lateral E' Carroll.: 0.07 m/s Pulmonary Valve PV Peak Carroll.: 1.03 m/s PV Peak Gr.: 4.24 mmHg Tricuspid Valve RAP Estimate: 5.00 mmHg TR Peak Gr.: 25.03 mmHg RVSP: 30.00 mmHg PA Pressure: 30.00 mmHg Left Ventricle The left ventricle is normal size. Apical akinesis. Mild concentric left ventricular hypertrophy. Left ventricular systolic function is mildly decreased. LVEF is 45-50%. Grade I - abnormal relaxation pattern. Right Ventricle The right ventricle is normal size. The right ventricular systolic function is normal. Atria The left atrium size is normal. The right atrium size is normal. Aortic Valve Mechanical aortic valve is present. No aortic regurgitation is present. There is no aortic valvular stenosis. Mitral Valve There is mitral annular calcification. Mild mitral regurgitation. No evidence of mitral valve stenosis. Tricuspid Valve The tricuspid valve is normal in structure. There is no tricuspid valve regurgitation noted. Pulmonic Valve The pulmonary valve is normal in structure. There is no pulmonic valvular regurgitation[place] [address] 2 D/M-MODE ECHOCARDIOGRAM Name: EMMA MARTINEZ Room: [address] IN [facility]#: [id number] Admission: 07/25/18 Attend Phys: Lisa Camarillo MD Discharge: Date of : 11/17/[birth year] Date of Service: 07/29/18 1259 Report #: [id number] The aortic root is normal in size. IVC is normal in size and collapses >50% with inspiration. Pericardium There is no pericardial effusion. <Conclusion> The left ventricle is normal size. Mild concentric left ventricular hypertrophy. Left ventricular systolic function is mildly decreased. LVEF is 45-50%. Grade I - abnormal relaxation pattern. Mechanical aortic valve is present. There is mitral annular calcification. Mild mitral regurgitation. IVC is normal in size and collapses >50% with inspiration. <ELECTRONICALLY SIGNED> By: Vadim Vaughn MD, FACC 07/29/18 1259 1259 1259 Vadim Vaughn MD, FACC /INF
--- NOTE | 2018-07-29 13:32 | NUR ---
SPOKE WITH PT.AGAIN AND DAUGHTERS. SHE WAS UP IN CHAIR EATING LUNCH. SHE WAS A BIT DIFFICULT TO KEEP ON TRACK WITH CONVERSATION BUT DID SAY SHE WOULD BE AGREEABLE TO GO THERE IF THEY COULD ACCEPT HER. [facility] HER. SHE WILL REVIEW INFORMATION. [facility]-[phone]/FAX [phone].
[2018-07-29] MEDS ORDERED: KEFLEX500 M1 PO (13:37)
--- NOTE | 2018-07-29 14:47 | NUR ---
PT ALERT AND ANSWERS ORIENTATION QUESTIONS APPROPRIATLEY, BUT DOES HAVE FREQUENT PERIODS OF CONFUSION. TELE TRACKING NSR AND ALL VSS ON ROOM AIR. FAMILY AT BEDSIDE THROUGHOUT SHIFT. EDUCATED ON SAFETY AND PLAN OF CARE. PLEASE SEE ASSESSMENT FOR ADDITIONAL INFORMATION. WILL CONTINUE TO MONITOR
[2018-07-29 15:15] VITALS: BP 117/54
--- NOTE | 2018-07-29 15:15 | NUR ---
CLAIRE/MARLENI [facility]USTAM[facility] CALLED AND SAID THEY CAN ACCEPT PT.TO THEIR SKILLED FACILITY. SHE WILL SEND A WC VAN BETWEEN 4-4:30. CHART TO BE COPIED TO GO WITH PT. NURSING WILL CALL REPORT. INFORMED DAUGHTER AND PT. DAUGHTER WAS GOING HOME QUICKLY TO GET PT.SOME CLOTHES.
== END 2018-07-29 16:45 | DRG 70 ==
LOC: M.ERS 20:02 → M.2W 21:36 → M.TBA-ER 21:36 → M.2W 22:38
PROVIDERS: Emergency Medicine; Internal Medicine; Internal Medicine Cardiovascular Disease; ADMIT Family Medicine
DX: G93.41 Metabolic encephalopathy (principal); N17.0 Acute kidney failure with tubular necrosis; R65.11 Systemic inflammatory response syndrome (SIRS) of non-infectious origin with acute organ dysfunction; M62.82 Rhabdomyolysis; N39.0 Urinary tract infection, site not specified; N18.4 Chronic kidney disease, stage 4 (severe); B96.20 Unspecified Escherichia coli [E. coli] as the cause of diseases classified elsewhere; E78.00 Pure hypercholesterolemia, unspecified; R48.2 Apraxia; I12.9 Hypertensive chronic kidney disease with stage 1 through stage 4 chronic kidney disease, or unspecified chronic kidney disease; I25.10 Atherosclerotic heart disease of native coronary artery without angina pectoris; R26.2 Difficulty in walking, not elsewhere classified; Z96.653 Presence of artificial knee joint, bilateral; E86.0 Dehydration; Z79.01 Long term (current) use of anticoagulants; Z79.82 Long term (current) use of aspirin; Z79.899 Other long term (current) drug therapy; Z88.2 Allergy status to sulfonamides; Z90.49 Acquired absence of other specified parts of digestive tract; Z90.710 Acquired absence of both cervix and uterus; Z90.721 Acquired absence of ovaries, unilateral; Z95.1 Presence of aortocoronary bypass graft; Z95.2 Presence of prosthetic heart valve

== ENCOUNTER 2018-11-22 12:24 | Inpatient (IN) | payer MEDICARE, OTHER ==
[~2018-11-22] VITALS: Ht 162.6 cm; Wt 50.3 kg
--- NOTE | ~2018-11-22 | CON ---
[address] [address] CONSULTATION Name: EMMA MARTINEZ Room: [address] IN .R.#: [id number] Admission: 11/22/18 Attend Phys: Elvin Em Discharge: Date of : 11/17/[birth year] Report #: [id number] THIS REPORT FOR: //name// CC: Saman Hurt Bruce Araizasawyer DATE OF SERVICE: 11/29/2018 LOCATION: The patient is in [facility], going to be moved by Dr. Hurt. HISTORY OF PRESENT ILLNESS: The patient is an 88-year-old female with an aortic metallic prosthesis. She came in with a fall and consequent elbow fracture with significant blood loss. Hemoglobin fell to 6. She has been transfused with subsequent recent hemoglobin being 12 grams percent. Anticoagulation was appropriately discontinued after the fall with blood loss and her INR for the last three days has been subtherapeutic. She is comfortable and no surgical intervention is planned for the elbow. Hemoglobin has stabilized. MEDICATIONS: Prior medicines have included aspirin, allopurinol, dicyclomine, diltiazem, ferrous sulfate, furosemide, losartan, pitavastatin, tramadol and previously utilized warfarin at 1 mg daily. PHYSICAL EXAMINATION: Demonstrates an elderly female who is in no acute distress. Vital signs are stable and the elbow fracture has stabilized without requirement for surgical intervention. Cardiac exam reveals a prosthetic second heart sound consistent with the metallic prosthesis. The elbow has stabilized. LABORATORY DATA: Hemoglobin is 12. Most recent INR is 1.3 in the absence of anticoagulation. IMPRESSION: 1. 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 2. Recent elbow fracture with associated blood loss. 3. Hypertension. 4. Hypercholesterolemia. RECOMMENDATIONS: Given the presence of metallic valve in the aortic position, it is imperative to reinstitute anticoagulation in the appropriate time consequence. She has not been anticoagulated for approximately 1 week and her INR has been subtherapeutic since 11/26/2018. I would recommend reinstitution with heparin initially on Coumadin, which will take 2-3 days to achieve a therapeutic level. Thus, I would recommend weight-based bolus and infusion with heparin, an initial dose of Coumadin 2 mg [place] [address] CONSULTATION Name: EMMA MARTINEZ Room: [address] IN [facility]#: [id number] Admission: 11/22/18 Attend Phys: Elvin Em Discharge: Date of : 11/17/[birth year] Report #: [id number] subsequent chronic dose consistent with prior usage at approximately 1 mg daily. Thank you for allowing us to see the patient. By: 1326 0713Jordy Desouza MD, FACC /nt
--- NOTE | ~2018-11-22 | CON ---
[address] [address] CONSULTATION Name: EMMA MARTINEZ Room: [address] IN .R.#: [id number] Admission: 11/22/18 Attend Phys: Elvin Em Discharge: Date of : [birth year]/17/[birth year] Report #: [id number] THIS REPORT FOR: //name// CC: Saman Cooley DATE OF SERVICE: 11/25/2018 REQUESTING PHYSICIAN: Dr. Damon REASON FOR CONSULTATION: Acute kidney injury. HISTORY OF PRESENT ILLNESS: The patient is an 88-year-old female with medical history significant for chronic kidney disease stage 4, debility, hypertension, history of chronic anticoagulation due to prosthetic heart valve. She presents after a fall and ulnar fracture. She fell at home and fractured her right proximal ulna. The patient also had some laceration at the area of fracture and some potential blood loss. Her hemoglobin dropped from 9.3 to 6.8 today. She also dropped her blood pressure, she had to be given boluses of 2 liters of saline. Her blood pressure was as low as 66/36 yesterday, it is better this morning but still in 90s. SOCIAL HISTORY: No tobacco, no alcohol abuse. FAMILY HISTORY: Noncontributory to the patient's age. REVIEW OF SYSTEMS: The patient is confused, so review of systems is unreliable. PHYSICAL EXAMINATION: GENERAL: She is awake, but confused. VITAL SIGNS: Blood pressure 85/41, heart rate 97, afebrile. HEENT: Pupils are round. NECK: Supple. LUNGS: Decreased air movement. CARDIOVASCULAR: Regular rate. ABDOMEN: Soft. LOWER EXTREMITIES: No edema. Her right elbow is dressed. LABORATORY DATA: Significant for hemoglobin of 6.8; serum creatinine of 4.8, it was 2.6 yesterday; potassium 4.2; BUN 92. ASSESSMENT: 1. Acute kidney injury due to underperfusion of the kidney due to low blood pressure because of the blood loss [place] [address] CONSULTATION Name: EMMA MARTINEZ Room: [address] IN ..#: [id number] Admission: 11/22/18 Attend Phys: Elvin Em Discharge: Date of : [birth year]/17/[birth year] Report #: [id number] 2. Chronic kidney disease, stage 4. 3. Dementia. 4. History of hypertension. PLAN: 1. Hold all her blood pressure medications. 2. Continue with the transfusion as ordered. I would also start normal saline at 60 mL an hour and follow labs. She will be a very poor candidate for dialysis. Discussed with the patient's nurse and family. By: 1135 [id number] Allen MD /nt
[~2018-11-22 12:24] MED LIST changes: +COZAAR 50 MG TA50 M1 PO; -COZAAR 50 MG TA50 M2 PO; +KEFLEX500 M1 PO
[2018-11-22 12:25] VITALS: BP 94/49
[2018-11-22] MEDS ORDERED: CARDIZEM30 MG PO (12:30)
[2018-11-22] MEDS ORDERED: LASIX 20 MG TAB20 MG PO (12:30)
[2018-11-22 13:56] LABS: ABSOLUTE BASOPHILS 0.1 thou/uL (0.0-0.2); ABSOLUTE EOSINOPHILS 0.2 thou/uL (0.0-0.7); ABSOLUTE LYMPHOCYTES 0.9 thou/uL (0.8-5.3); ABSOLUTE MONOCYTES 0.5 thou/uL (0.0-1.2); ABSOLUTE NEUTROPHILS 3.4 thou/uL (1.6-8.1); BASOPHILS 1.4 %; EOSINOPHILS 4.3 %; HEMATOCRIT 27.3 % (37.0-47.0); HEMOGLOBIN 9.3 gm/dL (12.0-15.0); MCH 31.3 pg (26.0-34.0); MCHC 33.9 g/dL (28.0-37.0); MCV 92.3 fL (80.0-100.0); MONOCYTES 9.7 %; MPV 7.3 fl. (7.2-11.1); NUCLEATED RBCS 0 /100WBC; PLATELET COUNT* 141 thou/uL (150-400); POLYS 67.6 %; RBC 2.96 mil/uL (4.20-5.00); RDW-CV 14.1 % (10.5-14.5); WBC 5.1 thou/uL (4.0-11.0)
[2018-11-22 14:05] LABS: INR 2.9; PROTIME 29.4 Seconds (9.20-11.50)
[2018-11-22 14:12] LABS: ALBUMIN 3.1 g/dL (3.4-5.0); ALKALINE PHOSPHATASE 128 U/L (46-116); ANION GAP 7 mmol/L (7-16); BUN 56 mg/dL (7-18); CALCIUM 9.9 mg/dL (8.5-10.1); CHLORIDE 105 mmol/L (98-107); CO2 31 mmol/L (21-32); CREATININE 2.6 mg/dL (0.6-1.3); GLUCOSE 123 mg/dL (70-99); POTASSIUM 3.3 mmol/L (3.5-5.1); SGOT 31 U/L (15-37); SGPT 21 U/L (30-65); SODIUM 143 mmol/L (136-145); TOTAL BILIRUBIN 0.5 mg/dL (<0.1-1.0); TOTAL PROTEIN 7.1 g/dL (6.4-8.2); TROPONIN-I LEVEL <0.06 ng/mL (<0.06)
[2018-11-22 15:08] LABS: URINE BILIRUBIN NEGATIVE (Negative); URINE BLOOD TRACE (Negative); URINE CLARITY CLEAR; URINE COLOR YELLOW; URINE GLUCOSE-RANDOM NEGATIVE (Negative); URINE KETONES NEGATIVE (Negative); URINE LEUKOCYTES-REFLEX TRACE (Negative); URINE NITRITE-REFLEX NEGATIVE (Negative); URINE PROTEIN NEGATIVE (Negative); URINE UROBILINOGEN 0.2 E.U./dl (0.2-1.0)
[2018-11-22 15:24] LABS: SQUAMOUS 4-10 Moderate /LPF (0-3); URINE WBC-REFLEX 0-5 Rare /HPF (0-5)
[2018-11-22 15:25] LABS: BACTERIA-REFLEX None Seen /HPF (None Seen); CASTS None Seen /LPF (None Seen); CRYSTALS None Seen /LPF (None Seen); URINE RBC None Seen /HPF (0-2)
--- NOTE | 2018-11-22 15:37 | EKG ---
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: Steven YEH : 1930 Requested By: Klaudia Galo Order Number: [id number] MD: Vadim Vaughn Measurements Intervals [place] Rate: 79 P: 28 WV: 159 QRS: -31 QRSD: 111 T: 30 QT: 444 QTc: 510 Interpretive Statements Sinus rhythm Ventricular premature complex ST elevation, consider inferior injury Prolonged QT interval Baseline wander in lead(s) V1 Compared to ECG 07/25/2018 21:24:30 Ventricular premature complex(es) now present Prolonged QT interval now present Left-axis deviation no longer present ST (T wave) deviation still present Myocardial infarct finding still present Electronically Signed On 11-22-2018 15:37:13 CDT by Vadim Vaughn [email or web address] <ELECTRONICALLY SIGNED> By: Vadim Vaughn MD, [facility] 11/22/18 1537 1342 1342 Vadim Vaughn MD, FAC /EPI
[2018-11-22 15:39] VITALS: BP 94/49
[2018-11-22 16:00] VITALS: BP 139/57
[2018-11-22 23:24] LABS: NT-PRO BRAIN NAT PEPTIDE 2308 pg/mL (<300)
[2018-11-23] VITALS: BP 138/98
[2018-11-23 04:00] VITALS: BP 96/42
[2018-11-23 08:00] VITALS: BP 115/52
[2018-11-23 12:03] VITALS: BP 148/108
[2018-11-23 15:30] VITALS: BP 109/79
[2018-11-24] VITALS (7 sets, daily range): BP systolic 66–91; BP diastolic 34–55
[2018-11-25 03:30] VITALS: BP 89/35
[2018-11-25 04:31] LABS: HEMATOCRIT 20.5 % (37.0-47.0); MCH 30.9 pg (26.0-34.0); MCV 93.8 fL (80.0-100.0); MPV 9.2 fl. (7.2-11.1); RBC 2.19 mil/uL (4.20-5.00); RDW-CV 14.4 % (10.5-14.5); WBC 8.4 thou/uL (4.0-11.0)
[2018-11-25 04:47] LABS: HEMOGLOBIN 6.8 gm/dL (12.0-15.0)
[2018-11-25 04:48] LABS: INR 4.3; PROTIME 43.3 Seconds (9.20-11.50)
[2018-11-25 05:01] LABS: ALBUMIN 2.6 g/dL (3.4-5.0); CALCIUM 8.1 mg/dL (8.5-10.1); MAGNESIUM 2.1 mg/dL (1.8-2.4); POTASSIUM 4.2 mmol/L (3.5-5.1); TOTAL BILIRUBIN 0.3 mg/dL (<0.1-1.0); TOTAL PROTEIN 5.7 g/dL (6.4-8.2)
[2018-11-25 05:04] LABS: CREATININE 4.8 mg/dL (0.6-1.3)
[2018-11-25 08:00] VITALS: BP 101/46
[2018-11-25 11:33] VITALS: BP 85/41
[2018-11-25 16:00] VITALS: BP 108/37
[2018-11-25 21:00] VITALS: BP 75/49
[2018-11-26] VITALS: BP 97/39
[2018-11-26 04:00] VITALS: BP 114/45
[2018-11-26 05:28] LABS: CALCIUM 8.4 mg/dL (8.5-10.1); CREATININE 4.2 mg/dL (0.6-1.3); POTASSIUM 3.9 mmol/L (3.5-5.1)
[2018-11-26 05:42] LABS: INR 2.8
[2018-11-26 08:10] VITALS: BP 105/39
[2018-11-26 13:00] VITALS: BP 90/37
[2018-11-26 13:41] LABS: ABSOLUTE EOSINOPHILS 0.4 thou/uL (0.0-0.7); ABSOLUTE LYMPHOCYTES 0.8 thou/uL (0.8-5.3); ABSOLUTE MONOCYTES 0.8 thou/uL (0.0-1.2); ABSOLUTE NEUTROPHILS 4.8 thou/uL (1.6-8.1); BASOPHILS 0.7 %; HEMATOCRIT 21.8 % (37.0-47.0); HEMOGLOBIN 7.4 gm/dL (12.0-15.0); LYMPHOCYTES 11.8 %; MCH 31.3 pg (26.0-34.0); MCHC 33.7 g/dL (28.0-37.0); MCV 92.8 fL (80.0-100.0); MONOCYTES 11.3 %; MPV 7.7 fl. (7.2-11.1); NUCLEATED RBCS 0 /100WBC; PLATELET COUNT* 129 thou/uL (150-400); POLYS 70.2 %; RBC 2.35 mil/uL (4.20-5.00); RDW-CV 14.1 % (10.5-14.5); WBC 6.8 thou/uL (4.0-11.0)
[2018-11-26 17:17] VITALS: BP 113/37
[2018-11-26 20:45] VITALS: BP 117/43
[2018-11-27] VITALS (7 sets, daily range): BP systolic 115–152; BP diastolic 46–68
[2018-11-27 05:07] LABS: INR 1.7; PROTIME 17.3 Seconds (9.20-11.50)
[2018-11-27 05:08] LABS: CALCIUM 8.1 mg/dL (8.5-10.1); POTASSIUM 3.7 mmol/L (3.5-5.1)
[2018-11-27 05:20] LABS: CREATININE 3.2 mg/dL (0.6-1.3)
[2018-11-27 06:39] LABS: MCH 30.9 pg (26.0-34.0); MCHC 33.1 g/dL (28.0-37.0); MCV 93.2 fL (80.0-100.0); MPV 8.9 fl. (7.2-11.1); RBC 2.13 mil/uL (4.20-5.00); RDW-CV 14.2 % (10.5-14.5); WBC 6.7 thou/uL (4.0-11.0)
[2018-11-27 06:40] LABS: HEMATOCRIT 19.8 % (37.0-47.0); HEMOGLOBIN 6.6 gm/dL (12.0-15.0)
[2018-11-28 04:00] VITALS: BP 146/80
[2018-11-28 04:32] LABS: MCH 29.8 pg (26.0-34.0); MCHC 33.5 g/dL (28.0-37.0); MCV 88.9 fL (80.0-100.0); MPV 7.9 fl. (7.2-11.1); RBC 4.05 mil/uL (4.20-5.00); RDW-CV 16.1 % (10.5-14.5)
[2018-11-28 04:42] LABS: HEMOGLOBIN 12.1 gm/dL (12.0-15.0)
[2018-11-28 04:51] LABS: CALCIUM 8.5 mg/dL (8.5-10.1); CREATININE 2.4 mg/dL (0.6-1.3); POTASSIUM 4.1 mmol/L (3.5-5.1)
[2018-11-28 05:01] LABS: INR 1.4; PROTIME 14.2 Seconds (9.20-11.50)
[2018-11-28 08:00] VITALS: BP 150/77
[2018-11-28 20:00] VITALS: BP 178/77
[2018-11-29] VITALS: BP 182/66
[2018-11-29 04:00] VITALS: BP 172/77
[2018-11-29 04:27] LABS: INR 1.3; PROTIME 13.4 Seconds (9.20-11.50)
[2018-11-29 07:45] VITALS: BP 165/65
[2018-11-29 09:11] LABS: HEMATOCRIT 36.3 % (37.0-47.0); HEMOGLOBIN 12.1 gm/dL (12.0-15.0); MCH 29.4 pg (26.0-34.0); MCHC 33.3 g/dL (28.0-37.0); MCV 88.5 fL (80.0-100.0); MPV 8.8 fl. (7.2-11.1); NUCLEATED RBCS 0 /100WBC; PLATELET COUNT* 189 thou/uL (150-400); RDW-CV 16.2 % (10.5-14.5); WBC 7.4 thou/uL (4.0-11.0)
[2018-11-29 09:37] LABS: ABSOLUTE LYMPHOCYTES 0.3 thou/uL (0.8-5.3); ABSOLUTE MONOCYTES 0.6 thou/uL (0.0-1.2); ABSOLUTE NEUTROPHILS 6.5 thou/uL (1.6-8.1); PLATELET ESTIMATE ADEQUATE
[2018-11-29 11:30] VITALS: BP 170/70
[2018-11-29 13:17] VITALS: BP 165/65
[2018-11-29 15:30] VITALS: BP 158/60
[2018-11-30] VITALS: BP 139/64
[2018-11-30 04:00] VITALS: BP 155/62
[2018-11-30 05:43] LABS: INR 1.5; PROTIME 15.4 Seconds (9.20-11.50)
[2018-11-30 06:11] LABS: APTT 50.6 Seconds (25.0-31.3)
[2018-11-30 08:40] VITALS: BP 131/42
[2018-11-30 12:00] VITALS: BP 131/55
[2018-11-30 16:51] VITALS: BP 124/53
[2018-11-30 21:50] VITALS: BP 133/54
[2018-12-01] VITALS (7 sets, daily range): BP systolic 98–153; BP diastolic 32–93
[2018-12-01 03:19] LABS: ABSOLUTE EOSINOPHILS 0.5 thou/uL (0.0-0.7); ABSOLUTE LYMPHOCYTES 1.3 thou/uL (0.8-5.3); ABSOLUTE MONOCYTES 1.1 thou/uL (0.0-1.2); ABSOLUTE NEUTROPHILS 5.7 thou/uL (1.6-8.1); BASOPHILS 0.5 %; EOSINOPHILS 5.5 %; HEMATOCRIT 32.6 % (37.0-47.0); HEMOGLOBIN 10.9 gm/dL (12.0-15.0); LYMPHOCYTES 15.2 %; MCH 30.1 pg (26.0-34.0); MCHC 33.5 g/dL (28.0-37.0); MCV 89.9 fL (80.0-100.0); MONOCYTES 12.3 %; MPV 7.4 fl. (7.2-11.1); NUCLEATED RBCS 0 /100WBC; PLATELET COUNT* 193 thou/uL (150-400); POLYS 66.5 %; RBC 3.63 mil/uL (4.20-5.00); RDW-CV 16.7 % (10.5-14.5); WBC 8.6 thou/uL (4.0-11.0)
[2018-12-01 03:22] LABS: CALCIUM 8.4 mg/dL (8.5-10.1); CREATININE 2.1 mg/dL (0.6-1.3); POTASSIUM 3.8 mmol/L (3.5-5.1)
[2018-12-01 03:28] LABS: INR 1.8; PROTIME 18.6 Seconds (9.20-11.50)
[2018-12-02 04:30] VITALS: BP 125/49
[2018-12-02 05:23] LABS: ABSOLUTE EOSINOPHILS 0.4 thou/uL (0.0-0.7); ABSOLUTE LYMPHOCYTES 1.3 thou/uL (0.8-5.3); ABSOLUTE MONOCYTES 0.7 thou/uL (0.0-1.2); ABSOLUTE NEUTROPHILS 4.3 thou/uL (1.6-8.1); BASOPHILS 0.3 %; EOSINOPHILS 5.3 %; HEMATOCRIT 32.2 % (37.0-47.0); HEMOGLOBIN 10.7 gm/dL (12.0-15.0); LYMPHOCYTES 19.2 %; MCHC 33.1 g/dL (28.0-37.0); MCV 90.6 fL (80.0-100.0); MONOCYTES 11.1 %; MPV 7.5 fl. (7.2-11.1); NUCLEATED RBCS 0 /100WBC; PLATELET COUNT* 189 thou/uL (150-400); POLYS 64.1 %; RBC 3.55 mil/uL (4.20-5.00); RDW-CV 17.1 % (10.5-14.5); WBC 6.7 thou/uL (4.0-11.0)
[2018-12-02 05:40] LABS: INR 2.3; PROTIME 23.8 Seconds (9.20-11.50)
[2018-12-02 08:00] VITALS: BP 124/64
[2018-12-02 15:15] VITALS: BP 130/46
[2018-12-03 00:30] VITALS: BP 160/53
[2018-12-03 04:30] VITALS: BP 117/63
[2018-12-03 07:55] VITALS: BP 143/66
[2018-12-03 09:06] LABS: ABSOLUTE EOSINOPHILS 0.3 thou/uL (0.0-0.7); ABSOLUTE MONOCYTES 0.8 thou/uL (0.0-1.2); ABSOLUTE NEUTROPHILS 6.4 thou/uL (1.6-8.1); BASOPHILS 0.5 %; EOSINOPHILS 3.2 %; HEMATOCRIT 32.1 % (37.0-47.0); HEMOGLOBIN 10.7 gm/dL (12.0-15.0); LYMPHOCYTES 11.4 %; MCH 30.2 pg (26.0-34.0); MCHC 33.3 g/dL (28.0-37.0); MCV 90.6 fL (80.0-100.0); MONOCYTES 9.8 %; MPV 7.1 fl. (7.2-11.1); NUCLEATED RBCS 0 /100WBC; PLATELET COUNT* 180 thou/uL (150-400); POLYS 75.1 %; RBC 3.55 mil/uL (4.20-5.00); RDW-CV 16.8 % (10.5-14.5); WBC 8.6 thou/uL (4.0-11.0)
[2018-12-03 09:19] LABS: INR 2.2; PROTIME 22.1 Seconds (9.20-11.50)
[2018-12-03] MEDS ORDERED: ENOXAPARIN60 MG/0.1 SUBQ (14:07)
== END 2018-12-03 15:59 | DRG 542 ==
LOC: M.ERS 12:24 → M.3W 14:58 → M.TBA-ER 14:58 → M.3W 15:49
PROVIDERS: Family Medicine; Internal Medicine; Internal Medicine Cardiovascular Disease; Internal Medicine Nephrology; Nurse Practitioner Family; ADMIT Internal Medicine
PROC: 2W3CX1Z Immobilization of Right Lower Arm using Splint (ICD-10-PCS; principal; 2018-11-22)
PROC: 30233N1 Transfusion of Nonautologous Red Blood Cells into Peripheral Vein, Percutaneous Approach (ICD-10-PCS; 2018-11-27)
DX: M80.031A Age-related osteoporosis with current pathological fracture, right forearm, initial encounter for fracture (principal); N17.0 Acute kidney failure with tubular necrosis; E44.0 Moderate protein-calorie malnutrition; N18.4 Chronic kidney disease, stage 4 (severe); Z68.1 Body mass index [BMI] 19.9 or less, adult; D62 Acute posthemorrhagic anemia; F03.90 Unspecified dementia, unspecified severity, without behavioral disturbance, psychotic disturbance, mood disturbance, and anxiety; I12.9 Hypertensive chronic kidney disease with stage 1 through stage 4 chronic kidney disease, or unspecified chronic kidney disease; E78.00 Pure hypercholesterolemia, unspecified; K58.9 Irritable bowel syndrome, unspecified; Z96.653 Presence of artificial knee joint, bilateral; W18.39XA Other fall on same level, initial encounter; Y93.89 Activity, other specified; Y92.098 Other place in other non-institutional residence as the place of occurrence of the external cause; Y99.8 Other external cause status; Z95.2 Presence of prosthetic heart valve; Z90.710 Acquired absence of both cervix and uterus; Z90.49 Acquired absence of other specified parts of digestive tract; Z90.722 Acquired absence of ovaries, bilateral; Z79.01 Long term (current) use of anticoagulants; Z79.82 Long term (current) use of aspirin; Z79.899 Other long term (current) drug therapy; Z88.2 Allergy status to sulfonamides; Z82.49 Family history of ischemic heart disease and other diseases of the circulatory system

== ENCOUNTER 2018-12-03 14:36 | Inpatient (IN) | payer MEDICARE, OTHER ==
[~2018-12-03] VITALS: Ht 149.9 cm; Wt 46.3 kg
[2018-12-03 14:15] VITALS: BP 131/50
[~2018-12-03 14:36] MED LIST changes: +CARDIZEM30 MG PO; +ENOXAPARIN60 MG/0.1 SUBQ; +LASIX 20 MG TAB20 MG PO
--- NOTE | 2018-12-03 18:10 | NUR ---
88 YEAR OLD FEMALE ADMITTED TO ROOM 320 WITH DX OF RIGHT OLECRANON FRACTURE. PT's RIGHT UPPER ARM IS IN A CAST AND WRAPPED WITH MICHAEL WRAP. IN ADDITION HER RIGHT LOWER LEG HAS A LARGE BRUISE ALSO A RESULT OF THE FALL. PT TRANSFERRED FROM THE WHEELCHAIR TO THE COMMODE AND THEN THE BED WITH MIN ASSIST. PT IS USING A QUAD CANE AND IS NWB TO THE RIGHT ARM. PT DENIES PAIN AT THIS TIME. ADMISSION PROCESS COMPLETED. PT ORIENTED TO ROOM, BED CONTROLS, CALL LIGHT AND TV REMOTE. FALL PRECAUTIONS AND HOURLY ROUNDING IMPLEMENTED, PT IS FORGETFUL BUT HASN'T BEEN IMPULSIVE.
[2018-12-03 19:00] VITALS: BP 115/86
--- NOTE | 2018-12-03 20:10 | NUR ---
RESTING QUIETLY IN BED. DAUGHTER IN ROOM. PAIN MEDICATION GIVEN FOR COMPLAINT OF RIGHT ARM PAIN RATED "9". SNACK PROVIDED. DAUGHTER ASSISTED PATIENT WITH EATING VANILLA PUDDING. MICHAEL WRAP AROUND RIGHT ARM CAST DRY/INTACT. PATIENT IS RIGHT HANDED.
[2018-12-04 05:08] LABS: HEMATOCRIT 31.8 % (37.0-47.0); HEMOGLOBIN 10.4 gm/dL (12.0-15.0); MCH 29.8 pg (26.0-34.0); MCHC 32.8 g/dL (28.0-37.0); MCV 90.9 fL (80.0-100.0); MPV 7.3 fl. (7.2-11.1); RBC 3.5 mil/uL (4.20-5.00); RDW-CV 17.3 % (10.5-14.5); WBC 7.3 thou/uL (4.0-11.0)
[2018-12-04 05:19] LABS: INR 2.3; PROTIME 23.1 Seconds (9.20-11.50)
[2018-12-04 05:33] LABS: CALCIUM 8.6 mg/dL (8.5-10.1); CREATININE 1.9 mg/dL (0.6-1.3)
--- NOTE | 2018-12-04 05:38 | NUR ---
RESTED ON/OFF. PAIN MEDICATION GIVEN FOR C/O RIGHT ARM AND RIGHT HAND PAIN. IT WAS TOO SOON FOR MORE TRAMADOL. GAVE TYLENOL WITH RELIEF. RIGHT FINGERS HAVE SLIGHT EDEMA. RIGHT ARM ELEVATED ON A PILLOW. RIGHT FINGERS WARM WITH BRISK CAPILLARY REFILL. CONTINENT. UP X ONE DURING THE NIGHT TO THE BEDSIDE COMMODE TO VOID AND HAD A SMALL GREEN BM. YELLED OUT FOR HELP. DOESN'T UNDERSTAND HOW TO USE THE CALL LIGHT. INSTRUCTED ON USE OF CALL LIGHT BUT DOESN'T SEEM TO GRASP THE CONCEPT. HOURLY ROUNDING IN PROGRESS.
[2018-12-04 07:51] VITALS: BP 116/41
--- NOTE | 2018-12-04 09:36 | NUR ---
Nutrition: Pt admitted to Rehab s/p Rt arm FX. H/o HTN. Wt recorded as bed wt 118#. Regular diet. Alb 2.6, prealb 15.9. RD will order Ensure Enlive for added protein intake. Low risk.
--- NOTE | 2018-12-04 16:53 | NUR ---
SW met with pt and pt dtr Kassandra and pt son in law was in the room as well. Pt was very talkative. Pt known to SW from previous inpt rehab stay and from recent stay on acute care. Pt was home alone and now pt dtrs are looking for [facility]; pt is resistant to this plan but SW encouraged pt to consider as pt may not be safe to dc home alone. Plan for team to reteam next Sunday to assess pt length of stay. Pt has hx at [facility]. SW to continue to follow to assist with safe dc planning.
--- NOTE | 2018-12-04 18:24 | NUR ---
PT IS ALERT AND ORIENTATED AND PLESANT. PRN FOR RT. ARM PAIN GIVEN X2 WITH GOOD EFFECT. PT TRANSFEERRS AND AMBULATES SHORT DISTANCES TO BATHROOM WITH QUAD CANE AND MIN ASSIST OF 1. PT IS ASSISTED WITH CLEANSINF AND ADJUSTING CLOTHING NDUE TO NEED TO HOLD TO GRABBAR TO STEADY SELF. PT EATS MEALS IN DINNINGROOM. SPLIT MICHAEL WRAPPED TO RT. ARM INTACT,PT REMAINS NWB TO RT.ARM PILLOW PLACED TO KEEP ARM ELEVATED.
[2018-12-04 20:31] VITALS: BP 126/48
--- NOTE | 2018-12-05 00:43 | NUR ---
ASSUMED CARE @ 1924-12/04-SUN.SITS IN W/C WATCHING TV & VISITING W/ DAUGHTER. POSTERIOR SPLINT IN PLACE RUE.WANTS TO GO TO BED & ASSISTED @ 1939.HOB UP. RUE ELEVATED ON A PILLOW.MOD ASSIST TO TRANSFER W/ GAIT BELT & QUAD CANE. ASSIST IN LIFTING BOTH LE'S INTO BED.BED ALARM PUT ON @ 1939.SEE PAIN MANAGEMENT @ 1955.TOTAL ASSIST AFTER VOIDING IN BSC W/ HYGIENE & CLOTHING ADJUSTMENTS.WEARS PULL UPS.NWB RUE DURING TRANSFERS.MOISTURE BARRIER CREAM APPLIED TO SMALL OPEN AREA LEFT BUTTOCK @ 2144 AFTER CHAPARRITA CARE.ON HOURLY ROUNDS.SEE POSITION CHANGE CHARTING Q 2 HOURS-EVEN HOURS.
[2018-12-05 04:01] LABS: INR 3.1; PROTIME 31.1 Seconds (9.20-11.50)
--- NOTE | 2018-12-05 05:43 | NUR ---
SLEPT EARLY @ 2029.AWAKE @ INTERVALS.USED BSC X2.SEE 2ND PAIN MANAGEMENT @ 0211.REFUSED HS SNACK.CHAPARRITA CARE X2 AFTER USING BSC DUE TO FECAL SMEARING X2. URINE-VERY CLOUDY W/ FOUL ODOR.DENIES PAIN ON URINATION.WILL ASK DR VALLADARES FOR ORDER FOR URINE CS.
--- NOTE | 2018-12-05 07:20 | NUR ---
VOIDED #3 @ 0643- PER BSC-CLOUDY,FOUL ODOR & PINKISH IN COLOR.DAY RN NOTIFIED OF URINE & NEEDS ORDER FOR URINE CS.
[2018-12-05 08:30] VITALS: BP 104/48
--- NOTE | 2018-12-05 17:53 | NUR ---
PT PARTICIPATED WITH THERAPIES AND AMBULATES WITH CANE GAITBELT AND MIN ASSIST OF 1 WITH STEADY GAIT. PT UP TO TOILET OR BSC AND HAS VOIDED AND HAD BM'S AT SAME TIMES. HAVE BEEN UNABLE TO OBTAIN UA DUE TO THIS. WILL ST CATH FOR SPECIMEN THIS EVENING.PT IS CONTINENT OF BLADDER AND HAS SMEAR GREEN BM PT IS ALERT AND ORIENTATEDAND ABLE TO VOICE NEEDS BUT CAN BE FORGETFULL. PT HAS RT.ARM IN MICHAEL WRAPPED SPLINT CAST AND WEARS SLING FOR COMFORT.ARM ELEVATED THIS AFTERNOON.FINGERS ARE WARM AND PT ABLE TO MOVE THEM BUT HAVE 1-2+ EDEMA AND ARM ELEVATED ON PILLOW.PRN FOR PAIN OF ARM AND HAND GIVEN WITH FAIR EFFECT.BRUSING TO RT HIP AND THIGH UNCHANGED.PT FEEDS SELF AFTER TRAY SET UP AND MEATS CUT UP.PT PROGRESSING WELL.
[2018-12-05 19:40] VITALS: BP 126/56
--- NOTE | 2018-12-05 19:40 | NUR ---
SITTING UP IN RECLINER. DAUGHTER SITTING ON COUCH VISITING. PT DENIES NEED FOR PAIN MEDS AT THIS TIME. RIGHT ARM IN CAST WRAPPED IN DRY MICHAEL WRAP. 1+ EDEMA NOTED TO RIGHT FINGERS. 2+ BILATERAL PEDAL EDEMA NOTED. SNACK PROVIDED.
[2018-12-06 01:05] LABS: URINE BILIRUBIN NEGATIVE (Negative); URINE BLOOD 3+ (Negative); URINE CLARITY TURBID; URINE GLUCOSE-RANDOM NEGATIVE (Negative); URINE KETONES NEGATIVE (Negative); URINE NITRITE-REFLEX NEGATIVE (Negative); URINE PROTEIN 1+ (Negative); URINE SPECIFIC GRAVITY 1.015 (1.005-1.030); URINE UROBILINOGEN 0.2 E.U./dl (0.2-1.0)
[2018-12-06 01:08] LABS: URINE COLOR PINK; URINE LEUKOCYTES-REFLEX 3+ (Negative)
[2018-12-06 01:19] LABS: BACTERIA-REFLEX >30 Many /HPF (None Seen); CASTS None Seen /LPF (None Seen); CRYSTALS None Seen /LPF (None Seen); MUCUS 0-3 Light strn/LPF (None Seen); SQUAMOUS 0-3 Few /LPF (0-3); URINE RBC >20 Many /HPF (0-2); URINE WBC-REFLEX >25 Many /HPF (0-5); WBC CLUMPS Moderate (None Seen)
[2018-12-06 04:39] LABS: PROTIME 40.4 Seconds (9.20-11.50)
--- NOTE | 2018-12-06 05:02 | NUR ---
RESTED ON/OFF. PAIN MEDICATIONS GIVEN X TWO DURING THE NIGHT FOR COMPLAINT OF RIGHT ARM AND RIGHT HAND PAIN WITH RELIEF. UP X ONE DURING THE NIGHT TO BEDSIDE COMMODE TO VOID. HOURLY ROUNDING IN PROGRESS.
[2018-12-06 08:25] VITALS: BP 131/66
--- NOTE | 2018-12-06 13:18 | NUR ---
ASSUMED CARE AT 0730. ALERT ORIENTED PLEASANT COOPERATIVE. HX OF RT. ULNAR FX NWBRUE. HAS SPLINT MICHAEL WRAP ANDREEA. EDEMA PRESENT R HAND AND FINGERS. ALSO BILATERAL FEET EDEMA PRESENT. ELEVATE WHEN POSSIBLE, WEARS SLING ANDREEA. PARTICIPATING IN THERAPIES THROUGHOUT THE DAY. TRANSFERS WITH MIN ASSIST G BELT AND CUES. USES HEMICANE WITH TRANSFERS. FEEDS SELF WITH SET UP. TYLENOL 2 TABS PO FOR C/O PAIN RT. HAND THIS AFTERNOON. HAD SMALL SOFT BM AND VOIDED THIS AFTERNOON IN TOILET NEEDS ASSIST WITH HYGEINE AND SOME CLOTHING ADJUSTMENTS DUE TO NWB RUE.
[2018-12-06 20:05] VITALS: BP 131/57
--- NOTE | 2018-12-07 02:45 | NUR ---
ASSUMED CARE @ 1928-12/06-SUNDAY.SITS IN W/C VISITING W/ DAUGHTER & A LADY FRIEND.SLING IN PLACE RUE W/ POSTERIOR SPLINT INTACT RUE.SEE PAIN MANAGEMENT @ 2031.DAUGHTER STAYING ALL NIGHT.NWB RUE OBSERVED DURING TRANSFERS.HOB UP IN BED.HEELS OFF BED & RUE UP ON A PILLOW WHILE IN BED.BED ALARM PUT ON @ 2119. EDEMA-RIGHT FINGERS/+1 PITTING LEGS/+2 PITTING-FEET & ANKLES.ON HOURLY ROUNDS. MOISTURE BARRIER CREAM APPLIED TO SMALL DRY OPEN AREA LEFT BUTTOCK @ 2314 AFTER VOIDING.PATIENT DOES FRONT CHAPARRITA CARE & RN DOES BACK DUE TO FECAL SMEARING.
[2018-12-07 05:02] LABS: PROTIME 47.6 Seconds (9.20-11.50)
[2018-12-07 05:23] LABS: INR 4.7
--- NOTE | 2018-12-07 07:27 | NUR ---
SLEEPING SINCE 2200 & SLEPT GOOD ALL NIGHT.REFUSED HS SNAck.BRP X1.USED BSC X3.SEE 2ND PAIN MANAGEMENT @ 3277.
--- NOTE | 2018-12-07 07:29 | NUR ---
LAB CALLED @ 7808 FOR CRITICAL INR-4.7.MESSAGE SENT TO YOU CALL MD @ 6505, 2846 & 7096.DR MAYES RETURNED CALL @ 0604.NO ORDER GIVEN.PATIENT HAD INR-4.0 12/06-SUNDAY.COUMADIN DISCONTINUED.
[2018-12-07 07:56] VITALS: BP 96/48
--- NOTE | 2018-12-07 16:09 | NUR ---
PT HAS PARTICIPATED WITH THERAPIES AND GOES TO DINNINGROOM FOR MEALS. PT AMBULATES TO AND FROM DINNINGROOM WITH CANE,GAITBELT AND MIN ASSIST OF 1. PT IS CONTINENT OF B+B AND ASSISTED WITH CLEANSING AFTER BM AND ADJUSTING PANTS DUE TO BEING TOO TIGHT.PRN FOR RT. ARN PAIN GIVEN THIS AM WITH GOOD EFFECT.PT IS ALERT AND ORIENTATED AND PLESANT.
[2018-12-07 17:20] VITALS: BP 124/50
[2018-12-07 19:45] VITALS: BP 86/55
--- NOTE | 2018-12-08 01:19 | NUR ---
ASSUMED CARE @ 1935-12/07-SAT.SITS IN RECLINER W/ CHAIR ALARM ASLREADY ON. DAUGHTER @ BEDSIDE.SLING RUE.HOB UP,FEET UP DUE TO EDEMA-+1 PITTING LEGS,+2 PITTING FEET & ANKLES.HEELS UP EACH ON ROLLED TOWEL @ 2039.RUE UP ON A PILLOW WHILE IN BED.HS DOSE CARDIZEM HELD.BP-86/55.ON HOURLY ROUNDS.
[2018-12-08 04:05] VITALS: BP 132/57
[2018-12-08 05:03] LABS: INR 3.9; PROTIME 39.7 Seconds (9.20-11.50)
--- NOTE | 2018-12-08 05:16 | NUR ---
SLEEPING SINCE 1999.REFUSED HS SNACK.SLEPT GOOD ALL NIGHT.USED BSC X3 DURING NIGHT.PULL UP CHANGED @ 0400.BP @ .BP RE-CHECKED @ 6933-/57.
[2018-12-08 07:58] VITALS: BP 129/57
--- NOTE | 2018-12-08 16:06 | NUR ---
ASSUMMED CARE OF PT AT 0730, PT ALERT AND ORIENTED, FORGETFUL, TRANSFERS WITH ASSIST OF 1, GB QUAD CANE, UP IN CHAIR MUCH OF SHIFT, REPOSTIONED EVERY 2 HOURS, HAD LUNCH IN DININGROOM, PT ASSISTED WITH GROOMING, BATHING, DRESSING, PT DENIES PAIN THIS SHIFT, SPLINT TO RIGHT ELBOW INTACT, SLING ON, PT MAINTAINS NWB RIGHT ARM, WEARS PULL UP,EDEMA IN ANKLES, LEGS ELEVATED AT INTERVALS IN RECLINER, APETITE DECREASED, SWELLING IN RIGHT FINGERS AND COMPLAINS OF SLIGHT NUMBENSS AT TIMES, ARM ELEVATED, HOURLY ROUNDING COMPLETED, ASSESSMENT COMPELTE, WILL CONTINUE TO MONITOR.
[2018-12-08 19:41] VITALS: BP 113/47
--- NOTE | 2018-12-09 01:28 | NUR ---
ASSUMED CARE @ 1919-12/08-SUNDAY.APPEARS SLEEPING IN RECLINER W/ LE'S UP. CHAIR ALARM ALREADY ON @ 1919.SLING IN PLACE RUE.HOB UP & FEET UP WHILE IN BED.NWB RUE.WEARS PULL UPS.ON HOURLY ROUNDS.TEST TUBE MAKER DOING ODD HOUR ROUNDS.
[2018-12-09 04:45] LABS: INR 2.6; PROTIME 26.9 Seconds (9.20-11.50)
--- NOTE | 2018-12-09 05:14 | NUR ---
SLEEPING EARLY SINCE 1919 & SLEPT GOOD ALL NIGHT.HEELS OFF BED @ 0400.TOOK ONLY 75 % DIET COKE HS SNACK.USED BSC X 4 W/ ASSIST.
--- NOTE | 2018-12-09 07:32 | NUR ---
NOTED PINK SCALP ALL OVER HEAD.TEMP CHECKED-98.4 ORAL.AT 0630-RESIDENT CHANGED DRSG RIGHT UE.
[2018-12-09 07:54] VITALS: BP 135/56
--- NOTE | 2018-12-09 12:46 | NUR ---
ASSUMED CARE AT 0730. ALERT ORIENTED PLEASANT COOPERATIVE. HX OF RT. ULNAR FX NWBRUE WEARS SLING FOR ELEVATION MICHAEL WRAP AND SPLINT C/D/I. MEDICATED WITH TYLENOL 2 TABS PO THIS A.M. BEFORE THERAPIES STARTED. TAKES MEDS 2 AT A TIME WITH SIPS OF WATER. FEEDS SELF WITH SET UP. APPETITE FAIRLY GOOD. PARTICIPATING IN THERAPIES THIS A.M. USES CALL LIGHT APPROPRIATELY FOR ASSIST. TRANSFERS WITH MIN SBA G BELT AND DANIEL CANE. DAUGHTERS HERE AND SPOKE WITH DR. ASHRAF AND WANT TO TALK WITH DR. [facility]. OFFICE WAS CALLED AND WILL RETURN A CALL TO ME. PT.ISNT ON THE SURGERY SCHEDULE FOR TOMORROW.
[2018-12-09 15:33] VITALS: BP 111/47
[2018-12-09 20:00] VITALS: BP 119/48
--- NOTE | 2018-12-10 05:27 | NUR ---
ASSUMED CARES AT 1920. ALERT AND ORIENTED BUT FORGETFUL. NWB ANDREEA WITH SLING. TYLENOL GIVEN FOR PAIN. TOOK PILLS WHOLE. MIN ASSIST WITH GAIT BELT AND QUAD CANE. UP TO BSC FEW TIMES OVERNIGHT. NEEDS ASSIST WITH DRESSING. SLEPT WELL OTHERWISE. CALL LIGHT IN REACH AND BED ALARM ON.
[2018-12-10 05:33] LABS: INR 1.9; PROTIME 19.8 Seconds (9.20-11.50)
[2018-12-10 07:00] VITALS: BP 131/53
--- NOTE | 2018-12-10 13:36 | NUR ---
SW met with pt, pt dtr Kassandra, and pt family/friend in preparation for team conference tomorrow. Pt dtr expressed interest in finding out time frame for pt time on inpt rehab and had not been making any progress on finding SENIOR LIVING yet. Pt dtr discussed pt may have "talked out of her head" yesterday morning when surgery discussed pre op with pt and pt dtr wants SW to brings up surgery possibilty again in team conference bc pt dtr feels that pt may actually want/need the surgery and possibly pt was confused at time of surgery discussing with pt. Pt said she just wasn't sure about decision making but that she was wanting to consider surgery after all. SW to continue to follow to assist with safe dc planning.
--- NOTE | 2018-12-10 16:00 | NUR ---
ASSUMED CARE AT 0730. ALERT ORIENTED, PLEASANT COOPERATIVE. HX OF RT. ULNAR FX NWB RUE.
--- NOTE | 2018-12-10 16:07 | NUR ---
PARTICIPATING IN THERAPIES. TRANSFERS WITH MIN SBA G BELT AND QUAD CANE NEEDS CUES USING CANE. WEARS SLING ANDREEA MICHAEL WRAP C/D/I. ELEVATE ANDREEA WHEN NOT IN THERAPIES. MEDICATED WITH PRN TYLENOL X 2. PARTICIPATING IN THERAPIES. EDEMA PRESENT IN BILATERAL FEET. ELEVATE IN RECLINER MUCH POSSIBLE. DAUGHTER HERE TODAY. USES CALL LIGHT APPROPRIATELY FOR ASSIST. WEARS PULLUPS.
[2018-12-10 20:10] VITALS: BP 108/32
--- NOTE | 2018-12-10 20:10 | NUR ---
SLEEPING IN RECLINER WITH LEGS ELEVATED. 2+ BILATERAL PEDAL EDEMA NOTED. TRANSFERRED FROM RECLINER TO BED WITH CGA, GAITBELT, QUAD CANE, CUEING. TOOK MEDICATIONS WHOLE WITH WATER.
--- NOTE | 2018-12-11 05:04 | NUR ---
TYLENOL GIVEN AT 2105 FOR COMPLAINT OF RIGHT ARM PAIN WITH RELIEF. UP X TWO DURING THE NIGHT TO THE COMMODE TO VOID. RESTED QUIETLY IN BETWEEN. HOURLY ROUNDING IN PROGRESS.
[2018-12-11 05:50] LABS: INR 2.2
[2018-12-11 08:00] VITALS: BP 128/55
--- NOTE | 2018-12-11 14:53 | NUR ---
PT CARE ASSUMED AT 0730, ASSESSMENT AND VITAL SIGNS COMPLETED DOCUMENTED. PT IS ORIENTED TO SELF BUT IS VERY FORGETFUL AND HAS BEEN TEARFUL TODAY STATING REPEATEDLY THAT NOBODY TOLD HER THAT HER AND NOBODY INVITED HER TO HIS . PT's 13 YEARS AGO. PT CONTINUES TO NEED SUPERVISION AND CUEING FOR SAFETY. FALL PRECAUTIONS AND HOURLY ROUNDING CONTINUE.
--- NOTE | 2018-12-11 17:12 | NUR ---
SW met with pt and pt dtr Kassandra to review team conference summary and plan for pt to remain on rehab unit one more week with possibility of pt to dc on 12/19. SW discussed team's continued recommendation for pt to have assistance at all times with all tasks and pt is overwhelmed with decision making and pt own situtation and dc needs. Pt dtr aware of situation and offered for pt to live with her but pt said that wouldn't be an option; pt continues to want to live in her own home. JORGE A explained safety issues and possibility for pt to dc to SNF next week if needed or [facility] if pt improves and would meet criteria for [facility]. Pt doesn't want to spend money on [facility] but then will say that she would if she needs to spend it or even spend money for private duty care so she can be in her home. SW to continue to follow to assist with safe dc planning for next 12/19 either to SNF or [facility] depending on pt needs and pt/family decisions closer to dc date.
[2018-12-11 21:24] VITALS: BP 142/50
--- NOTE | 2018-12-12 01:43 | NUR ---
ASSUMED CARE @ 1919-12/11-SUN.SITS IN RECLINER W/ LE'S UP.CHAIR ALARM ALREADY ON @ 1919.SLING RUE IN PLACE.TO BED @ 2199.LIFTING ASSIST FROM RECLINER & FROM BSC.HOB UP.HEELS OFF BED W/ ROLLED TOWEL.NWB RUE OBSERVED.BED ALARM PUT ON @ 2199.ON HOURLY ROUNDS.SEE POSITION CHANGE CHARTING Q 2 HOURS-EVEN HOURS.
[2018-12-12 04:50] LABS: INR 2.3
[2018-12-12 05:07] LABS: PROTIME 23.3 Seconds (9.20-11.50)
--- NOTE | 2018-12-12 05:24 | NUR ---
SLEPT LATE @ 2300 & & SLEPT GOOD ALL NIGHT.TOOK 75% DIET COKE & ONE COOKIE HS SNACKS.USED BSC X2 W/ ASSIST.MOISTURE BARRIER CREAM APPLIED TO LEFT BUTTOCK @ 0315 AFTER USING BSC.AWAKENED BY LAB FOR BLOOD DRAW @ 0400.
--- NOTE | 2018-12-12 18:04 | NUR ---
PT HAS BEEN PLEASANT AND COOPERATIVE TODAY, NO TEARFUL EPISODES. PT's RIGHT ARM REMAINS IN A SPLINT AND IS IMMOBILIZED WITH A SPLINT WHEN SHE IS OUT OF BED. PT AMBULATES 100- 150 FEET WITH A QUAD CANE AND CONTACT GUARD FOR SAFETY. MINIMUM ASSISTANCE GIVEN WITH TRAY PREP, CHAPARRITA CARE AND CLOTHING ADJUSTMENTS. FALL PRECAUTIONS AND HOURLY ROUNDING CONTINUE.
[2018-12-12 19:55] VITALS: BP 124/60
--- NOTE | 2018-12-13 01:26 | NUR ---
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
[2018-12-13 04:06] LABS: INR 2.6; PROTIME 26.3 Seconds (9.20-11.50)
--- NOTE | 2018-12-13 05:13 | NUR ---
SLEEPING SINCE 2200 & SLEPT GOOD ALL NIGHT.USED BSC X2 W/ ASSIST.TOOK ONLY 75% DIET COKE HS SNACK.
[2018-12-13 11:18] VITALS: BP 111/44
--- NOTE | 2018-12-13 18:51 | NUR ---
PATIENT ALERT AND ORIENTED WITH SOME CONFUSION. TYL FOR RT SHOULDER PAIN. NO SIGN OF DISTRESS.
[2018-12-13 19:15] VITALS: BP 97/42
--- NOTE | 2018-12-13 21:00 | NUR ---
TOOK MEDICATIONS WHOLE TWO AT A TIME WITH WATER. CONSUMED A CORINNE CRACKER. TRANSFERRED FROM RECLINER TO BEDSIDE COMMODE THEN FROM BEDSIDE COMMODE TO BED WITH CGA, GAITBELT, QUAD CANE, CUEING. REQUIRED ASSISTANCE WITH CHAPARRITA CARE AND PULLING PANTS UP AND DOWN. TYLENOL GIVEN FOR COMPLAINT OF RIGHT ARM PAIN RATED "5". MICHAEL WRAP AROUND RIGHT ARM DRY/INTACT. RIGHT ARM ELEVATED WITH A PILLOW. RIGHT FINGERS WARM AND FINGER TIPS HAVE BRISK CAPILLARY REFILL. 2+ RIGHT PEDAL EDEMA AND 1+ LEFT PEDAL EDEMA NOTED. LEGS ELEVATED ON A PILLOW.
[2018-12-14 03:27] LABS: URINE BILIRUBIN NEGATIVE (Negative); URINE BLOOD NEGATIVE (Negative); URINE CLARITY CLEAR; URINE COLOR YELLOW; URINE GLUCOSE-RANDOM NEGATIVE (Negative); URINE KETONES NEGATIVE (Negative); URINE LEUKOCYTES-REFLEX NEGATIVE (Negative); URINE NITRITE-REFLEX NEGATIVE (Negative); URINE PROTEIN NEGATIVE (Negative); URINE SPECIFIC GRAVITY <= 1.005 (1.005-1.030); URINE UROBILINOGEN 0.2 E.U./dl (0.2-1.0)
[2018-12-14 04:07] LABS: INR 3.1; PROTIME 31.6 Seconds (9.20-11.50)
--- NOTE | 2018-12-14 06:44 | NUR ---
UP X 2 DURING THE NIGHT TO THE BEDSIDE TO VOID. NO FURTHER COMPLAINT OF PAIN. HOURLY ROUNDING IN PROGRESS.
[2018-12-14 08:00] VITALS: BP 100/49
--- NOTE | 2018-12-14 18:20 | NUR ---
PT HAS BEEN PLEASANT AND COOPERATIVE TODAY WITH BRIEF OF PERIODS OF TEARFULNESS, REDIRECTS EASILY. RIGHT ARM IS SPLINTED AND WRAPPED WITH AN MICHAEL BANDAGE, PT HAS GOOD MOTILITY OF HER RIGHT HAND AND FINGERS, NO LOSS OF SENSATION. FALL PRECAUTIONS AND HOURLY ROUNDING IN PLACE, PT USES THE CALL LIGHT APPROPRIATELY.
[2018-12-14 19:15] VITALS: BP 126/50
--- NOTE | 2018-12-14 20:10 | NUR ---
SITTING UP IN RECLINER WITH FEET ELEVATED. AMBULATED TO THE BATHROOM WITH CGA, GAITBELT, QUAD CANE, CUEING. HAD A SMALL GREEN FORMED BM. ASSISTED WITH CHAPARRITA CARE AND PULLING PANTS UP AND DOWN. RIGHT ARM IN A SPLINT COVERED WITH MICHAEL BANDAGE WHICH IS DRY/INTACT. NON WEIGHT BEARING TO RIGHT ARM. TYLENOL GIVEN FOR COMPLAINT OF RIGHT ARM PAIN RATED "5". TOOK MEDICATIONS WHOLE TWO AT A TIME WITH WATER. DECLINED OFFER OF A SNACK.
[2018-12-15 05:27] LABS: INR 3.6; PROTIME 36.5 Seconds (9.20-11.50)
--- NOTE | 2018-12-15 05:47 | NUR ---
UP X 2 DURING THE NIGHT TO BEDSIDE COMMODE TO VOID. GIVEN TYLENOL X 2 FOR COMPLAINT OF RIGHT ARM AND RIGHT HAND PAIN WITH RELIEF. HOURLY ROUNDING IN PROGRESS.
[2018-12-15 06:20] VITALS: BP 158/59
[2018-12-15 08:00] VITALS: BP 158/59
--- NOTE | 2018-12-15 17:50 | NUR ---
PT's INR WAS 3.6 THIS AM, WARFARIN HELD THIS EVENING AND WILL RESUME AT A LOWER DOSE TOMORROW EVENING. PT WAS ABLE TO GET SOME EXTRA REST TODAY AND STATES SHE IS GOING TO WORK REALLY HARD TOMORROW.
[2018-12-15 20:00] VITALS: BP 110/48
[2018-12-16 04:32] LABS: HEMATOCRIT 30.5 % (37.0-47.0); HEMOGLOBIN 9.9 gm/dL (12.0-15.0); MCH 29.7 pg (26.0-34.0); MCHC 32.5 g/dL (28.0-37.0); MCV 91.2 fL (80.0-100.0); MPV 7.6 fl. (7.2-11.1); RBC 3.34 mil/uL (4.20-5.00); RDW-CV 17.1 % (10.5-14.5); WBC 5.1 thou/uL (4.0-11.0)
[2018-12-16 04:34] LABS: INR 3.7; PROTIME 37.5 Seconds (9.20-11.50)
[2018-12-16 04:44] LABS: ALBUMIN 2.8 g/dL (3.4-5.0); CALCIUM 9.1 mg/dL (8.5-10.1); CREATININE 2.1 mg/dL (0.6-1.3); POTASSIUM 4.5 mmol/L (3.5-5.1); TOTAL BILIRUBIN 0.5 mg/dL (<0.1-1.0); TOTAL PROTEIN 6.3 g/dL (6.4-8.2)
--- NOTE | 2018-12-16 05:18 | NUR ---
ASSUMED CARE AT 1930. PATIENT RESTING IN RECLINER UNTIL AROUND 2014. UP WITH CGA, GAIT BELT, QUAD CANE. VOIDED PER TOILET. DOES OWN HYGIENE BUT NEEDS HELP WITH CLOTHING ADJUSTMENTS. TAKES PILLS WHOLE WITH WATER. GIVEN APAP AT HS. NO FURTHER C/O. HOURLY ROUNDS CONTINUE. BED ALARM ON. CALL LITE IN REACH.
[2018-12-16 06:26] VITALS: BP 101/68
[2018-12-16 08:05] VITALS: BP 119/50
--- NOTE | 2018-12-16 18:36 | NUR ---
PT COOPERATED WITH ALL THERAPIES, PROGRESS HAS BEEN GRADUAL PARTIALLY DUE TO HER FORGETFULNESS. PT IS AMBULATORY WITH A QUAD CANE AND CONTACT GUARD ASSIST. FALL PRECAUTIONS AND HOURLY ROUNDING CONTINUE.
[2018-12-16 20:00] VITALS: BP 149/74
[2018-12-17 04:37] LABS: INR 2.7; PROTIME 27.1 Seconds (9.20-11.50)
--- NOTE | 2018-12-17 05:10 | NUR ---
assumed patient care at 1900. patient alert and oriented. very sad and is forgetfyul. ambulates with the assisst of a gait belt and quad cane. minor complaints of pain noted. oral medication given. hourly rounding completed as documented. will continue to monitor
[2018-12-17 07:35] VITALS: BP 117/52
--- NOTE | 2018-12-17 15:28 | NUR ---
JORGE A met with pt dtr Kassandra in preparation for team conference tomorrow. Pt dtr expressed concern pt may need SNF and preference would be for [facility]. SW mentioned if pt able to be at [facility] level, JORGE A called [facility] and left a message for Zulma to evaluate for possible arrangement for pt. Pt dtr hopeful for more time for rehab/SNF because pt dtr feels pt needs more strengthening with ADLs prior to being ready for [facility]. SW to continue to follow to assist with safe dc planning. Reteam tomorrow with possible dc .
--- NOTE | 2018-12-17 17:50 | NUR ---
PATIENT HAS BEEN A/O X 4, FORGETFUL AT TIMES. PATIENT MEDICATED FOR RIGHT HAND PAIN THIS MORNING WITH GOOD EFFECT. PATIENT PARTICIPATED IN ALL THERAPIES THIS SHIFT. UP IN CHAIR WITH WAFFLE CUSHION IN PLACE IN BETWEEN THERAPY SESSIONS. TAKES PILLS WHOLE WITH WATER. ASSISTED WITH MEAL SET UP DUE TO NWB TO RIGHT ARM. MICHAEL WRAP IN PLACE TO RIGHT ARM, NEURO CHECKS TO RIGHT HAND WNL. PATIENT UP SBA WITH QUAD CANE AND GB. AMBULATING TO BATHROOM, ABLE TO USE GRAB BAR FOR TOILET TRANSFERS. PATIENT NEEDS ASSIST WITH CLOTHING MANAGEMENT, ABLE TO DO CHAPARRITA-CARE WITH LEFT HAND. PATIENT TO DINING ROOM FOR LUNCH AND DINNER, APPETITE FAIR. PATIENT'S DAUGHTER VISITED THIS AFTERNOON. BED/CHAIR ALARMS UTILIZED. HOULY ROUNDING MAINTAINED THROUGHOUT THE SHIFT. CALL LIGHT WITHIN REACH. WILL CONTINUE WITH PLAN OF CARE.
[2018-12-17 19:00] VITALS: BP 126/53
--- NOTE | 2018-12-17 19:30 | NUR ---
SITTING UP IN RECLINER WATCHING TV. ASSISTED WITH MAKING A PHONE CALL TO A DAUGHTER. PAIN MEDICATION GIVEN FOR COMPLAINT OF RIGHT HAND PAIN RATED "8". RIGHT SPLINT COVERED WITH DRY MICHAEL WRAP. AMBULATES WITH CGA, QUAD, CANE. TOOK MEDICATIONS WHOLE TWO AT A TIME WITH WATER.
--- NOTE | 2018-12-18 05:21 | NUR ---
RESTED QUIETLY. UP X ONE DURING THE NIGHT TO THE BEDSIDE COMMODE TO VOID. NO FURTHER COMPLAINT OF PAIN. HOURLY ROUNDING IN PROGRESS.
[2018-12-18 05:23] LABS: INR 2.2; PROTIME 22.7 Seconds (9.20-11.50)
[2018-12-18 08:00] VITALS: BP 123/41
--- NOTE | 2018-12-18 11:25 | NUR ---
AM ASSESSMENT AND VITAL SIGNS COMPLETED DOCUMENTED. PT CONTINUES TO WORK WITH ALL THERAPIES. PRN TRAMADOL GIVEN FOR C/O OF RIGHT HAND AND ARM PAIN, GOOD PAIN CONTROL OBTAINED. SPLINT AND MICHAEL WRAP REMAIN IN PLACE TO RIGHT ARM, FINGERS ARE WARM WITH GOOD MOBILITY. FALL PRECAUTIONS AND HOURLY ROUNDING CONTINUE.
--- NOTE | 2018-12-18 15:20 | NUR ---
JORGE A met with pt and pt neighbor/friend to review team conference summary and plan for pt to dc on Sunday; recommendation of SNF at this time due to pt does not have assistance at all times with dtrs; pt doesn't want to move in with dtrs, and pt not functionally ready to dc to [facility]. Pt/family also want more time to be able to allow pt progress as well as prepare financially for [facility]. JORGE A spoke with [facility] again and discussed plan for [facility] now after a SNF stay but will fax referral for future reference. JORGE A faxed referral to [facility] admissions at pt/family preference. JORGE A talked with pt dtr Kassandra in the morning about plan and possibility was , but now plan is for dc Sunday, pt family/friend to inform Kassandra in change of dc date to Sunday to SNF. SW to continue to follow to assist with safe dc planning and SNF placement. [facility] ph [phone] fax [phone]
[2018-12-18 19:00] VITALS: BP 105/48
--- NOTE | 2018-12-18 20:00 | NUR ---
SITTING UP IN RECLINER WATCHING TV. PAIN MEDICATION GIVEN FOR COMPLAINT OF RIGHT HAND PAIN. HAS RIGHT ARM IN A SLING. STATES IS LONELY AND WANTING SOMEONE TO VISIT WITH. STATES UPSET ABOUT HAVING TO LEAVE SUNDAY.
[2018-12-19 04:26] LABS: INR 2.1; PROTIME 21.3 Seconds (9.20-11.50)
--- NOTE | 2018-12-19 06:36 | NUR ---
RESTED SOUNDLY ALL NIGHT. NO FURTHER COMPLAINTS OF PAIN. HOURLY ROUNDING IN PROGRESS.
[2018-12-19 07:45] VITALS: BP 103/44
--- NOTE | 2018-12-19 10:55 | NUR ---
JORGE A called 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 SW to continue to follow to assist with finalizing safe dc plan/SNF placement for dc Wednesday 12/20.
--- NOTE | 2018-12-19 15:03 | NUR ---
AM ASSESSMENT AND VITAL SIGNS COMPLETED DOCUMENTED. PT HAS BEEN ANXIOUS TODAY ABOUT MOVING TO A NEW PLACE TOMORROW, REASSURANCE GIVEN AND PT PROVIDED WITH MAGAZINES. PT IS AMBULATORY WITH A QUAD CANE AND CONTACT GUARD FOR BALANCE. RIGHT ARM IS SPLINTED AND WRAPPED IN MICHAEL WRAP, GOOD RADIAL PULSE. FALL PRECAUTIONS AND HOURLY ROUNDING CONTINUE.
[2018-12-19 19:15] VITALS: BP 148/71
--- NOTE | 2018-12-20 00:33 | NUR ---
ASSUMED CARE AT 1930. PATIENT RESTING IN RECLINER UNTIL AROUND 2029. UP WITH CUEING, GAIT BELT, QUAD CANE. GETS BOTH LEGS INTO BED. TAKES PILLS WITH WATER. MEDICATED FOR GENERALIZED PAIN AT HS. RT ARM SLING REMOVED AT HS. SPLINT C/D/I WITH GOOD CIRCULATION TO FINGERS NOTED. WAS ANXIOUS AT BEGINNING OF SHIFT, BUT CALMED DOWN AT HS. TURNS SELF. HOURLY ROUNDS CONTINUE. BED ALARM ON.
[2018-12-20 04:12] LABS: INR 2.1; PROTIME 21.5 Seconds (9.20-11.50)
--- NOTE | 2018-12-20 05:25 | NUR ---
SLEPT MUCH OF THE SHIFT. WOKE UP TO VOID. TURNS SELF. NO C/O PAIN. HOURLY ROUNDS CONTINUE. BED ALARM ON. CALL LITE IN REACH.
[2018-12-20 06:33] VITALS: BP 128/56
[2018-12-20 07:15] VITALS: BP 127/55
--- NOTE | 2018-12-20 09:57 | NUR ---
Pt to dc to SNF today at [facility]. Pt dtr to provide transportation. SW faxed final orders and med list to [facility] admissions ph [phone] fax [phone] Chart copied for continuation of care.
[2018-12-20 10:02] VITALS: BP 127/55
--- NOTE | 2018-12-20 11:54 | NUR ---
PT DISCHARGED BY WHEELCHAIR AT 1154 WITH NURSING STAFF AND DAUGHTER. DAUGHTER TRANSPORTING PT TO [facility]. REPORT CALLED. PAPER PRESCRIPTION SENT. PT STABLE UPON DISCHARGE. NO IV. PERSONAL ITEMS SENT WITH PT.
== END 2018-12-20 11:54 | DRG 563 ==
LOC: M.REH 14:36
PROVIDERS: Internal Medicine; ADMIT Physical Medicine & Rehabilitation
DX: S52.021A Displaced fracture of olecranon process without intraarticular extension of right ulna, initial encounter for closed fracture (principal); D62 Acute posthemorrhagic anemia; N17.9 Acute kidney failure, unspecified; E44.0 Moderate protein-calorie malnutrition; N39.0 Urinary tract infection, site not specified; D68.59 Other primary thrombophilia; I12.9 Hypertensive chronic kidney disease with stage 1 through stage 4 chronic kidney disease, or unspecified chronic kidney disease; N18.9 Chronic kidney disease, unspecified; Z96.653 Presence of artificial knee joint, bilateral; K58.9 Irritable bowel syndrome, unspecified; W18.39XA Other fall on same level, initial encounter; F32.9 Major depressive disorder, single episode, unspecified; G62.9 Polyneuropathy, unspecified; Y93.89 Activity, other specified; Y92.89 Other specified places as the place of occurrence of the external cause; Y99.8 Other external cause status; Z79.01 Long term (current) use of anticoagulants; Z95.2 Presence of prosthetic heart valve; Z88.2 Allergy status to sulfonamides; Z90.49 Acquired absence of other specified parts of digestive tract; Z95.1 Presence of aortocoronary bypass graft; Z82.49 Family history of ischemic heart disease and other diseases of the circulatory system; Z68.20 Body mass index [BMI] 20.0-20.9, adult